=== PATIENT | male | born 1945 | race Caucasian/White ===

== ENCOUNTER 2020-04-29 16:11 | Emergency (ER) | payer OTHER, MEDICARE ==
[~2020-04-29] VITALS: Ht 177.8 cm; Wt 97.1 kg
[~2020-04-29 16:11] MED LIST: ALBU90OI INH; ALLO100 PO; ALLO300 PO; AMLO10 PO; ATEN50 PO; ATOR10 PO; BUPR100 PO; CALCAVITD PO; CHLO50; CLON.5 PO; CLON1 PO; CLOP75 PO; CYAN1000 PO; DOCU100 PO; FISH1000 PO; FLUO20 PO; FLUT.05NI; GABA600 PO; GLIP5 PO; HYDACE7.5 PO; INSUASPI SC; IRON325 MG PO; LAMO25 PO; LAMO50 PO; LISI20 PO; LISI5 PO; MECL25 PO; METCAR750 PO; NITR.4SL SL; OMEP20ER PO; OXYC5; PANT40 PO; PROBIOTIC1 EAC1 PO; Prednisone10 MG PO; QUET25 PO; SERT100 PO
[2020-04-29 17:03] LABS: Source, Urine Clean Catch
[2020-04-29 17:15] LABS: Bilirubin, Urine Neg (Neg); Blood, Urine Neg (Neg); Glucose Qualitative, Urine Neg (Neg); Ketones, Urine Neg (Neg); Leukocyte Esterase, Urine 1+ (Neg); Nitrite, Urine Neg (Neg); Protein, Urine 2+ (Neg); Specific Gravity, Urine 1.015 (1.003-1.022); Urobilinogen, Urine NORM (Normal)
[2020-04-29 17:23] LABS: Appearance, Urine Clear (Clear); Color, Urine Yellow (P-Yellow)
[2020-04-29 17:24] LABS: Bacteria Few /hpf; Red Blood Cells, Urine 0-2 /hpf (0-2); Squamous Epithelial Cells Few /hpf (Few)
[2020-04-29 17:56] LABS: BASOPHILS ABSOLUTE AUTO 0.05 K/mm3 (0.00-0.23); BASOPHILS PERCENT AUTO 0 % (0-2); EOSINOPHILS ABSOLUTE AUTO 0.14 K/mm3 (0.00-0.68); EOSINOPHILS PERCENT AUTO 1 % (0-6); Hematocrit 42.6 % (37.0-53.0); Hemoglobin 13.9 g/dL (13.5-17.5); IMMATURE GRAN ABSOLUTE AUTO 0.08 K/mm3 (0.00-0.10); IMMATURE GRAN PERCENT AUTO 1 % (0-1); LYMPHOCYTES ABSOLUTE AUTO 0.74 K/mm3 (0.84-5.20); LYMPHOCYTES PERCENT AUTO 7 % (21-46); MONOCYTES ABSOLUTE AUTO 0.38 K/mm3 (0.16-1.47); MONOCYTES PERCENT AUTO 3 % (4-13); Mean Corpuscular HGB 30.2 pg (26.0-34.0); Mean Corpuscular HGB Conc 32.6 g/dL (31.5-36.5); Mean Corpuscular Volume 93 fL (80-100); NEUTROPHILS ABSOLUTE AUTO 9.73 K/mm3 (1.96-9.15); NEUTROPHILS PERCENT AUTO 88 % (41-73); Platelet Count 160 K/mm3 (150-400); RDW Coefficient Variation 15.6 % (11.7-14.2); RDW Standard Deviation 53.3 fL (35.1-46.3); White Blood Cell Count 11.12 K/mm3 (4.00-11.30)
[2020-04-29 18:05] LABS: Albumin, Blood 3.6 g/dL (3.4-5.0); Bilirubin, Total 0.4 mg/dL (0.1-1.0); Bun/Creatinine Ratio 21.8 (12.0-20.0); Calcium, Blood 8.9 mg/dL (8.5-10.1); Creatinine, Blood 1.97 mg/dL (0.60-1.20); Globulin, Blood 3.5 g/dL (2.2-4.0); Potassium, Blood 4.3 mmol/L (3.5-5.5); Total Protein, Blood 7.1 g/dL (6.4-8.2)
[2020-04-29] MEDS ORDERED: BUPR100 PO (21:59)
[2020-04-29] MEDS ORDERED: NEURONTIN600 MG PO (22:00)
[2020-04-29] MEDS ORDERED: HYDHCL25 PO (22:01)
[2020-04-29] MEDS ORDERED: Terazosin HCl10 MG PO (22:01)
[2020-04-29] MEDS ORDERED: SERT100 PO (22:01)
[2020-04-29] MEDS ORDERED: NOVOLOG MI100 UNIT/2 SC (22:02)
[2020-04-29] MEDS ORDERED: FERSU300 PO (22:03)
[2020-04-29] MEDS ORDERED: FLUT.05NI (22:03)
== END 2020-04-29 22:17 | disposition home or self-care (01) ==
LOC: ER 16:11
PROVIDERS: Physician Assistant
DX: R10.9 Unspecified abdominal pain (principal); I12.9 Hypertensive chronic kidney disease with stage 1 through stage 4 chronic kidney disease, or unspecified chronic kidney disease; N18.3 Chronic kidney disease, stage 3 (moderate); Z88.2 Allergy status to sulfonamides; Z88.8 Allergy status to other drugs, medicaments and biological substances; Z88.5 Allergy status to narcotic agent; Z79.899 Other long term (current) drug therapy; Z79.4 Long term (current) use of insulin; Z79.52 Long term (current) use of systemic steroids
CPT/HCPCS: 36415; 74176; 80053; 81001; 83690; 85025; 87086; 99284-25

== ENCOUNTER 2020-09-12 14:12 | Emergency (ER) | payer OTHER, MEDICARE ==
[~2020-09-12] VITALS: Ht 180.3 cm; Wt 98.4 kg
[~2020-09-12 14:12] MED LIST changes: +FERSU300 PO; +HYDHCL25 PO; +NEURONTIN600 MG PO; +NOVOLOG MI100 UNIT/2 SC; +Terazosin HCl10 MG PO
[2020-09-12 15:10] LABS: BASOPHILS ABSOLUTE AUTO 0.03 K/mm3 (0.00-0.23); BASOPHILS PERCENT AUTO 0 % (0-2); EOSINOPHILS ABSOLUTE AUTO 0.09 K/mm3 (0.00-0.68); EOSINOPHILS PERCENT AUTO 1 % (0-6); Hematocrit 38.6 % (37.0-53.0); Hemoglobin 12.4 g/dL (13.5-17.5); IMMATURE GRAN ABSOLUTE AUTO 0.03 K/mm3 (0.00-0.10); IMMATURE GRAN PERCENT AUTO 0 % (0-1); LYMPHOCYTES ABSOLUTE AUTO 0.57 K/mm3 (0.84-5.20); LYMPHOCYTES PERCENT AUTO 6 % (21-46); MONOCYTES ABSOLUTE AUTO 0.51 K/mm3 (0.16-1.47); MONOCYTES PERCENT AUTO 5 % (4-13); Mean Corpuscular HGB 30.1 pg (26.0-34.0); Mean Corpuscular HGB Conc 32.1 g/dL (31.5-36.5); Mean Corpuscular Volume 94 fL (80-100); Mean Platelet Volume 11.4 fL (9.1-12.4); NEUTROPHILS ABSOLUTE AUTO 8.63 K/mm3 (1.96-9.15); NEUTROPHILS PERCENT AUTO 88 % (41-73); Platelet Count 130 K/mm3 (150-400); RDW Coefficient Variation 14.8 % (11.7-14.2); RDW Standard Deviation 51.3 fL (35.1-46.3); Red Blood Cell Count 4.12 M/mm3 (4.30-5.90); White Blood Cell Count 9.86 K/mm3 (4.00-11.30)
[2020-09-12 15:25] LABS: Albumin, Blood 3.2 g/dL (3.4-5.0); Albumin/Globulin Ratio 0.9 (0.8-1.8); Bilirubin, Total 0.6 mg/dL (0.1-1.0); Bun/Creatinine Ratio 14.8 (12.0-20.0); Calcium, Blood 9.3 mg/dL (8.5-10.1); Creatinine, Blood 2.1 mg/dL (0.60-1.20); Globulin, Blood 3.4 g/dL (2.2-4.0); Potassium, Blood 4.2 mmol/L (3.5-5.5); Total Protein, Blood 6.6 g/dL (6.4-8.2)
[2020-09-12 16:47] LABS: Source, Urine Clean Catch
[2020-09-12 16:55] LABS: Appearance, Urine Clear (Clear); Bilirubin, Urine Neg (Neg); Blood, Urine 1+ (Neg); Color, Urine Yellow (P-Yellow); Glucose Qualitative, Urine Neg (Neg); Ketones, Urine Neg (Neg); Leukocyte Esterase, Urine 2+ (Neg); Nitrite, Urine Neg (Neg); Protein, Urine 2+ (Neg); Specific Gravity, Urine 1.015 (1.003-1.022); Urobilinogen, Urine NORM (Normal)
[2020-09-12 17:05] LABS: Bacteria Rare /hpf; Squamous Epithelial Cells Rare /hpf (Few)
[2020-09-12] MEDS ORDERED: CEPH500 PO (17:52)
== END 2020-09-12 18:16 | disposition home or self-care (01) ==
LOC: ER 14:12
PROVIDERS: Physician Assistant
DX: N39.0 Urinary tract infection, site not specified (principal); G89.29 Other chronic pain; M54.5 Low back pain; S50.312A Abrasion of left elbow, initial encounter; C61 Malignant neoplasm of prostate; I12.9 Hypertensive chronic kidney disease with stage 1 through stage 4 chronic kidney disease, or unspecified chronic kidney disease; N18.30 Chronic kidney disease, stage 3 unspecified; Z91.81 History of falling; Z88.2 Allergy status to sulfonamides; Z88.5 Allergy status to narcotic agent; Z88.8 Allergy status to other drugs, medicaments and biological substances; Z79.4 Long term (current) use of insulin; Z79.52 Long term (current) use of systemic steroids; Z79.899 Other long term (current) drug therapy; W19.XXXA Unspecified fall, initial encounter
CPT/HCPCS: 36415; 74176; 80053; 81001; 85025; 87086; 99285-25; A9270-GY

== ENCOUNTER 2021-01-28 18:32 | Emergency (ER) | payer OTHER, MEDICARE ==
[~2021-01-28] VITALS: Ht 175.3 cm; Wt 96.6 kg
[~2021-01-28 18:32] MED LIST changes: +CEPH500 PO
[2021-01-28 19:30] LABS: BASOPHILS ABSOLUTE AUTO 0.04 K/mm3 (0.00-0.23); BASOPHILS PERCENT AUTO 0 % (0-2); EOSINOPHILS ABSOLUTE AUTO 0.19 K/mm3 (0.00-0.68); EOSINOPHILS PERCENT AUTO 2 % (0-6); Hemoglobin 13.2 g/dL (13.5-17.5); IMMATURE GRAN ABSOLUTE AUTO 0.04 K/mm3 (0.00-0.10); IMMATURE GRAN PERCENT AUTO 0 % (0-1); LYMPHOCYTES ABSOLUTE AUTO 0.88 K/mm3 (0.84-5.20); LYMPHOCYTES PERCENT AUTO 10 % (21-46); MONOCYTES PERCENT AUTO 8 % (4-13); Mean Corpuscular HGB 30.6 pg (26.0-34.0); Mean Corpuscular HGB Conc 31.4 g/dL (31.5-36.5); Mean Corpuscular Volume 97 fL (80-100); Mean Platelet Volume 11.4 fL (9.1-12.4); NEUTROPHILS ABSOLUTE AUTO 7.37 K/mm3 (1.96-9.15); NEUTROPHILS PERCENT AUTO 80 % (41-73); Platelet Count 110 K/mm3 (150-400); RDW Coefficient Variation 14.7 % (11.7-14.2); RDW Standard Deviation 53.4 fL (35.1-46.3); Red Blood Cell Count 4.31 M/mm3 (4.30-5.90); White Blood Cell Count 9.22 K/mm3 (4.00-11.30)
[2021-01-28 19:49] LABS: Alanine Aminotransfer (ALT/SGP 25 U/L (12-78); Albumin, Blood 3.3 g/dL (3.4-5.0); Albumin/Globulin Ratio 0.9 (0.8-1.8); Alk Phos 82 U/L (50-136); Anion Gap 6 mmol/L (6-16); Aspartate Aminotrans (AST/SGOT 23 U/L (12-37); Bilirubin, Total 0.4 mg/dL (0.1-1.0); Blood Urea Nitrogen 32 mg/dL (8-24); Bun/Creatinine Ratio 16.3 (12.0-20.0); CO2, Blood 23 mmol/L (21-32); Calcium, Blood 8.9 mg/dL (8.5-10.1); Chloride, Blood 106 mmol/L (98-108); Creatinine, Blood 1.96 mg/dL (0.60-1.20); Globulin, Blood 3.6 g/dL (2.2-4.0); Glomerular Filtration Rate 36 (60-); Glucose, Blood 89 mg/dL (70-99); Potassium, Blood 4.2 mmol/L (3.5-5.5); Sodium, Blood 135 mmol/L (136-145); Total Protein, Blood 6.9 g/dL (6.4-8.2); Troponin I <0.015 ng/mL (0.000-0.040)
== END 2021-01-29 00:33 | disposition home or self-care (01) ==
LOC: ER 18:32
PROVIDERS: Physician Assistant
DX: R07.9 Chest pain, unspecified (principal); I12.9 Hypertensive chronic kidney disease with stage 1 through stage 4 chronic kidney disease, or unspecified chronic kidney disease; N18.30 Chronic kidney disease, stage 3 unspecified; F17.210 Nicotine dependence, cigarettes, uncomplicated; Z79.4 Long term (current) use of insulin; Z79.899 Other long term (current) drug therapy; Z79.52 Long term (current) use of systemic steroids; Z98.890 Other specified postprocedural states; Z91.81 History of falling; Z88.2 Allergy status to sulfonamides; Z88.5 Allergy status to narcotic agent
CPT/HCPCS: 36415; 70450; 71045; 80053; 84484; 85025; 93005; 93010; 99284-25

== ENCOUNTER 2021-01-30 19:07 | Inpatient (IN) | payer OTHER, MEDICARE ==
[~2021-01-30] VITALS: Ht 177.8 cm; Wt 97.7 kg
[2021-01-30 23:39] LABS: BASOPHILS ABSOLUTE AUTO 0.03 K/mm3 (0.00-0.23); BASOPHILS PERCENT AUTO 0 % (0-2); EOSINOPHILS ABSOLUTE AUTO 0.17 K/mm3 (0.00-0.68); EOSINOPHILS PERCENT AUTO 2 % (0-6); Hematocrit 35.9 % (37.0-53.0); Hemoglobin 11.9 g/dL (13.5-17.5); IMMATURE GRAN ABSOLUTE AUTO 0.02 K/mm3 (0.00-0.10); IMMATURE GRAN PERCENT AUTO 0 % (0-1); LYMPHOCYTES ABSOLUTE AUTO 0.95 K/mm3 (0.84-5.20); LYMPHOCYTES PERCENT AUTO 11 % (21-46); MONOCYTES ABSOLUTE AUTO 0.91 K/mm3 (0.16-1.47); MONOCYTES PERCENT AUTO 10 % (4-13); Mean Corpuscular HGB 30.3 pg (26.0-34.0); Mean Corpuscular HGB Conc 33.1 g/dL (31.5-36.5); Mean Corpuscular Volume 91 fL (80-100); NEUTROPHILS ABSOLUTE AUTO 6.82 K/mm3 (1.96-9.15); NEUTROPHILS PERCENT AUTO 77 % (41-73); Platelet Count 109 K/mm3 (150-400); RDW Coefficient Variation 14.4 % (11.7-14.2); RDW Standard Deviation 48.7 fL (35.1-46.3); Red Blood Cell Count 3.93 M/mm3 (4.30-5.90)
[2021-01-30 23:57] LABS: Albumin, Blood 2.8 g/dL (3.4-5.0); Albumin/Globulin Ratio 0.8 (0.8-1.8); Bilirubin, Total 0.5 mg/dL (0.1-1.0); Bun/Creatinine Ratio 16.4 (12.0-20.0); Calcium, Blood 8.7 mg/dL (8.5-10.1); Creatinine, Blood 1.95 mg/dL (0.60-1.20); Globulin, Blood 3.3 g/dL (2.2-4.0); Potassium, Blood 3.6 mmol/L (3.5-5.5); Total Protein, Blood 6.1 g/dL (6.4-8.2)
[2021-01-31 00:37] LABS: Source, Urine Clean Catch
[2021-01-31 00:40] LABS: Appearance, Urine Clear (Clear); Bilirubin, Urine Neg (Neg); Blood, Urine 2+ (Neg); Color, Urine Yellow (P-Yellow); Glucose Qualitative, Urine Neg (Neg); Ketones, Urine Neg (Neg); Leukocyte Esterase, Urine Neg (Neg); Nitrite, Urine Neg (Neg); Protein, Urine 3+ (Neg); Urobilinogen, Urine NORM (Normal)
[2021-01-31 00:46] LABS: Bacteria Few /hpf; Hyaline Casts 0-2 /lpf (0-2); Red Blood Cells, Urine 0-2 /hpf (0-2); Squamous Epithelial Cells Few /hpf (Few); White Blood Cells, Urine 0-2 /hpf (0-5)
[2021-01-31 00:50] LABS: U Amphetamine Screen Not Detected; U Barbituate Screen Not Detected; U Benzodiazapine Screen Not Detected; U Buprenorphine Screen Not Detected; U Cannabinoids Screen Not Detected; U Cocaine Screen Not Detected; U Methadone Screen Not Detected; U Methamphetamine Screen Not Detected; U Opiates Screen Not Detected; U Oxycodone Screen Not Detected; U Phencyclidine Screen Not Detected; U Propoxyphene Screen Not Detected
[2021-01-31 04:56] LABS: BASOPHILS ABSOLUTE AUTO 0.04 K/mm3 (0.00-0.23); BASOPHILS PERCENT AUTO 0 % (0-2); EOSINOPHILS ABSOLUTE AUTO 0.19 K/mm3 (0.00-0.68); EOSINOPHILS PERCENT AUTO 2 % (0-6); Hematocrit 38.8 % (37.0-53.0); Hemoglobin 12.8 g/dL (13.5-17.5); IMMATURE GRAN ABSOLUTE AUTO 0.05 K/mm3 (0.00-0.10); IMMATURE GRAN PERCENT AUTO 1 % (0-1); LYMPHOCYTES ABSOLUTE AUTO 0.92 K/mm3 (0.84-5.20); LYMPHOCYTES PERCENT AUTO 9 % (21-46); MONOCYTES ABSOLUTE AUTO 0.86 K/mm3 (0.16-1.47); MONOCYTES PERCENT AUTO 8 % (4-13); Mean Corpuscular HGB 29.9 pg (26.0-34.0); Mean Corpuscular Volume 91 fL (80-100); Mean Platelet Volume 11.7 fL (9.1-12.4); NEUTROPHILS PERCENT AUTO 80 % (41-73); Platelet Count 120 K/mm3 (150-400); RDW Coefficient Variation 14.4 % (11.7-14.2); RDW Standard Deviation 48.2 fL (35.1-46.3); Red Blood Cell Count 4.28 M/mm3 (4.30-5.90); White Blood Cell Count 10.36 K/mm3 (4.00-11.30)
--- NOTE | 2021-01-31 05:15 | NUR ---
SHIFT SUMMARY: PT IS ALERT AND ORIENTED WITH INTERMITTENT CONFUSION. PT IS CALM AND COOPERATIVE WITH CARE. PT NOT USING HIS CALL LIGHT, SET OFF HIS BED ALARM ON MULTIPLE OCCASIONS. PT HAD INCONTINENT VOIDS ON SEVERAL OCCASIONS, CHANGED AND CLEANED NEEDED. PT DENIES PAIN, NAUSEA, VOMITING, AND SOB. NEW IV STARTED IN THE R. HAND. FLUIDS DC'D ORDERED AND DIURESING STARTED. BED IN LOW POSITION, CALL LIGHT WITHIN REACH. WILL REPORT TO DAY NURSE.
[2021-01-31 05:23] LABS: Albumin, Blood 3.1 g/dL (3.4-5.0); Albumin/Globulin Ratio 0.8 (0.8-1.8); Bilirubin, Total 0.7 mg/dL (0.1-1.0); Bun/Creatinine Ratio 16.8 (12.0-20.0); Calcium, Blood 9.1 mg/dL (8.5-10.1); Creatinine, Blood 1.9 mg/dL (0.60-1.20); Globulin, Blood 3.9 g/dL (2.2-4.0); Potassium, Blood 3.5 mmol/L (3.5-5.5)
--- NOTE | 2021-01-31 11:40 | NUR ---
Echocardiogram performed.
--- NOTE | 2021-01-31 16:55 | NUR ---
SHIFT SUMMARY- PT A/OX3, ANSWER QUESTIONS APROPRIATELY BUT VERY FORGETFUL. PT DOES NOT CALL APROPRIATELY AND IS IMPULSIVE. PT MEDICATED X1 WITH TYLENOL FOR RIGHT NECK, HEAD AND RIGHT KNEE PAIN. LS CLEAR, ON RA. TELE ST AT 69. PT UNSTEADY AT TIMES. PT WITH FREQUENCY AND URGENCY AFTER DIURETICS. PT INCONT AT TIMES, ATTEMPTED CONDOM CATH BUT PT PULLED OFF. PT RIGHT HAND NOTED TO BE SLIGHTLY WEAKER, MRI HAS BEEN ORDERED BUT DUE TO STENTS AWAITING REPORT FOR [facility]. COLOSTOMY TO LEFT ABD. PT 1 ASSIST UP TO BATHROOM WITH FWW, PT/OT EVAL TODAY. NO OTHER ACUTE CHANGES THIS SHIFT.
--- NOTE | 2021-01-31 17:35 | NUR ---
PT SPOUSE AT BEDSIDE AND REPORTS PT HAS BEEN OUT OF PREDNISONE FOR ABOUT A WEEK, STATES SHE IS WAITING FOR AN APPT WITH HIS COMPLIANCE DIRECTOR TO GET THE ORDER RENEWED. SPOUSE BELIVES RIGHT HAND PAIN COULD BE RELATED TO THIS.
--- NOTE | 2021-01-31 20:34 | NUR ---
PT continued impulsive & at high risk for falls. Transferred to room 353 in [facility] for closer observation camera monitoring to prevent further falls & injury. Hand off regulatory report provided & reviewed with Julisa JERNIGAN who assumed care at 2002. Personal belongings including bilat hearing aides sent with PT.
--- NOTE | 2021-01-31 20:36 | NUR ---
TRANSFER RECIEVED REPORT FROM COLLEEN LAM PT TRANSFERRED FROM RM 358 TO RM 353.
[2021-02-01 06:15] LABS: BASOPHILS ABSOLUTE AUTO 0.04 K/mm3 (0.00-0.23); BASOPHILS PERCENT AUTO 1 % (0-2); EOSINOPHILS ABSOLUTE AUTO 0.15 K/mm3 (0.00-0.68); EOSINOPHILS PERCENT AUTO 2 % (0-6); Hematocrit 35.2 % (37.0-53.0); Hemoglobin 11.8 g/dL (13.5-17.5); IMMATURE GRAN ABSOLUTE AUTO 0.03 K/mm3 (0.00-0.10); IMMATURE GRAN PERCENT AUTO 0 % (0-1); LYMPHOCYTES ABSOLUTE AUTO 0.77 K/mm3 (0.84-5.20); LYMPHOCYTES PERCENT AUTO 9 % (21-46); MONOCYTES ABSOLUTE AUTO 0.68 K/mm3 (0.16-1.47); MONOCYTES PERCENT AUTO 8 % (4-13); Mean Corpuscular HGB 30.4 pg (26.0-34.0); Mean Corpuscular HGB Conc 33.5 g/dL (31.5-36.5); Mean Corpuscular Volume 91 fL (80-100); Mean Platelet Volume 11.7 fL (9.1-12.4); NEUTROPHILS ABSOLUTE AUTO 6.68 K/mm3 (1.96-9.15); NEUTROPHILS PERCENT AUTO 80 % (41-73); Platelet Count 127 K/mm3 (150-400); RDW Coefficient Variation 14.3 % (11.7-14.2); RDW Standard Deviation 47.2 fL (35.1-46.3); Red Blood Cell Count 3.88 M/mm3 (4.30-5.90); White Blood Cell Count 8.35 K/mm3 (4.00-11.30)
--- NOTE | 2021-02-01 06:24 | NUR ---
SHIFT SUMMARY AOX4, ANSWERS ALL ORIENTATION QUESTIONS CORRECTLY. STATES "I WAS SURE CONFUSED LAST NIGHT, I DIDNT EVEN KNOW WHERE I WAS." STILL FORGETFUL @TIMES. VSS. TELE NSR @61. REPORTS 05/04 RLE PAIN, STATES HE THINKS ITS FROM FALLING-PT DENIED THE NEED FOR TYLENOL. DENIES DYSPNEA. SPO2 >90% ON RA. HAS OCCASIONAL COUGH, LUNGS ARE DIM c COURSE BREATH SOUNDS IN BASES, E/U RESPIRATIONS. COLOSTOMY APPLIANCE C/D/I TO LLQ ABD. PT USED CONDOM CATH TONIGHT, TO ASSIST c FREQUENT URINATION. CALL LIGHT & BED ALARM IN PLACE FOR SAFETY.
[2021-02-01 07:12] LABS: Albumin, Blood 2.8 g/dL (3.4-5.0); Albumin/Globulin Ratio 0.8 (0.8-1.8); Bilirubin, Total 0.5 mg/dL (0.1-1.0); Bun/Creatinine Ratio 19.2 (12.0-20.0); Calcium, Blood 8.8 mg/dL (8.5-10.1); Creatinine, Blood 2.03 mg/dL (0.60-1.20); Globulin, Blood 3.7 g/dL (2.2-4.0); Potassium, Blood 3.4 mmol/L (3.5-5.5); Thyroid Stimulating Hormone 0.876 uIU/mL (0.360-4.800); Total Protein, Blood 6.5 g/dL (6.4-8.2)
--- NOTE | 2021-02-01 15:50 | NUR ---
PATIENTS' COGNITIVE STATE APPEARS TO FLUCTUATE; THIS MORNING HE WAS ORIENTED TO SELF, PLACE, TIME AND SITUATION HOWEVER THIS AFTERNOON HE WAS NOTED TO BE VERY CONFUSED AND DISORIENTED. I WAS INFORMED IN REPORT THIS MORNING THAT HE AMBULATES WITH ONE PERSON ASSIST AND FWW HOWEVER WHEN THE SPECIAL EVENTS DRIVER AND STUDENT-SPECIAL EVENTS DRIVER ATTEMPTED TO GET THE PATIENT UP FOR A SHOWER HE WAS TOO WEAK TO EVEN STAND; PATIENT WAS GIVEN A BED-BATH INSTEAD. PATIENT WAS NOTED TO HAVE A FEVER THIS AFTERNOON OF 100.8; TYLENOL ADMINISTERED AND UPON REASSESSMENT THE FEVER WAS DOWN TO 99.9. PATIENT NOW NOTED TO BE SWEATING AND IT APPEARS HIS FEVER HAS BROKE. IS AT HIS BEDSIDE VISITING AT THIS TIME. CALL LIGHT IS IN REACH.
[2021-02-02 05:36] LABS: Hematocrit 33.7 % (37.0-53.0); Hemoglobin 11.4 g/dL (13.5-17.5); Mean Corpuscular HGB 30.3 pg (26.0-34.0); Mean Corpuscular HGB Conc 33.8 g/dL (31.5-36.5); Mean Corpuscular Volume 90 fL (80-100); Mean Platelet Volume 11.7 fL (9.1-12.4); Platelet Count 153 K/mm3 (150-400); RDW Standard Deviation 46.2 fL (35.1-46.3); Red Blood Cell Count 3.76 M/mm3 (4.30-5.90); White Blood Cell Count 7.82 K/mm3 (4.00-11.30)
[2021-02-02 06:17] LABS: Albumin, Blood 2.7 g/dL (3.4-5.0); Albumin/Globulin Ratio 0.8 (0.8-1.8); Bilirubin, Total 0.7 mg/dL (0.1-1.0); Calcium, Blood 9.2 mg/dL (8.5-10.1); Creatinine, Blood 2.1 mg/dL (0.60-1.20); Globulin, Blood 3.5 g/dL (2.2-4.0); Potassium, Blood 3.4 mmol/L (3.5-5.5); Total Protein, Blood 6.2 g/dL (6.4-8.2)
--- NOTE | 2021-02-02 06:39 | NUR ---
SHIFT SUMMARY PATIENT ALERT AND ORIENTED X3. HAD NO COMPLAINTS OF PAIN. PATIENT PLACED ON 3 LITERS O2 VIA NASAL CANULA TO HELP MAINTAIN HIS O2 SATURATION >92%. IV PATENT AND FLUSHED. BED IN LOWEST POSITION WITH WHEELS LOCKED AND ALARM ON. CALL LIGHT WITHIN REACH. REPORT GIVEN TO ONCOMING RN.
[2021-02-02 17:10] LABS: ANA DIRECT Negative (Negative)
--- NOTE | 2021-02-02 19:31 | NUR ---
SHIFT SUMMARY: NO ACUTE EVENTS TO REPORT THIS SHIFT. PT A&O X1-4; OCC FORGETFUL; CALM AND COOPERATIVE WITHC ARE. MEDICATED FOR CULLEN PAIN & COUGH PER EMAR. COLOSTOMY LLQ; PATENT & DRAINING; SMALL OUTPUT THIS SHIFT. PT & OT FOLLOWING. REPORT GIVEN TO ONCOMING RN.
--- NOTE | 2021-02-03 04:12 | NUR ---
SHIFT SUMMARY: PATIENT IS A&OX3, FORGETFUL AT TIMES, DOES NOT USE CALL [place] FOR ASSIST OOB, BED ALARM IS ON FOR SAFETY. LUNGS ARE DIMINISHED WITH AND OCCASSIONAL NON-PRO COUGH. MAINTAINS SATS ON RA AT 94%
[2021-02-03 05:15] LABS: BASOPHILS ABSOLUTE AUTO 0.03 K/mm3 (0.00-0.23); BASOPHILS PERCENT AUTO 0 % (0-2); EOSINOPHILS ABSOLUTE AUTO 0.24 K/mm3 (0.00-0.68); EOSINOPHILS PERCENT AUTO 3 % (0-6); Hematocrit 35.4 % (37.0-53.0); Hemoglobin 11.9 g/dL (13.5-17.5); IMMATURE GRAN ABSOLUTE AUTO 0.03 K/mm3 (0.00-0.10); IMMATURE GRAN PERCENT AUTO 0 % (0-1); LYMPHOCYTES ABSOLUTE AUTO 0.74 K/mm3 (0.84-5.20); LYMPHOCYTES PERCENT AUTO 10 % (21-46); MONOCYTES ABSOLUTE AUTO 0.49 K/mm3 (0.16-1.47); MONOCYTES PERCENT AUTO 6 % (4-13); Mean Corpuscular HGB 30.4 pg (26.0-34.0); Mean Corpuscular HGB Conc 33.6 g/dL (31.5-36.5); Mean Corpuscular Volume 91 fL (80-100); Mean Platelet Volume 10.9 fL (9.1-12.4); NEUTROPHILS PERCENT AUTO 80 % (41-73); Platelet Count 178 K/mm3 (150-400); RDW Coefficient Variation 14.1 % (11.7-14.2); RDW Standard Deviation 46.5 fL (35.1-46.3); Red Blood Cell Count 3.91 M/mm3 (4.30-5.90); White Blood Cell Count 7.63 K/mm3 (4.00-11.30)
[2021-02-03 05:39] LABS: Albumin, Blood 2.8 g/dL (3.4-5.0); Albumin/Globulin Ratio 0.7 (0.8-1.8); Bilirubin, Total 0.6 mg/dL (0.1-1.0); Bun/Creatinine Ratio 23.6 (12.0-20.0); Calcium, Blood 9.4 mg/dL (8.5-10.1); Creatinine, Blood 1.99 mg/dL (0.60-1.20); Globulin, Blood 3.9 g/dL (2.2-4.0); Potassium, Blood 3.4 mmol/L (3.5-5.5); Total Protein, Blood 6.7 g/dL (6.4-8.2)
--- NOTE | 2021-02-03 19:38 | NUR ---
SHIFT SUMMARY: NO ACUTE CHANGES TO REPORT THIS SHIFT. PT A&O X3; OCC FORGETFUL; CALM AND COOPERATIVE WITH CARE. MEDICATED FOR CULLEN PAIN PER EMAR. O2 SATS STABLE ON ROOM AIR, COOLOSTOMY TO LLQ; PATENT & DRAINING. BLADDER SCAN Q SHIFT; FREQUENT VOIDS; POST-VOID RESIDUAL 0 THIS SHIFT. AWAITING CLEARANCE TO PERFORM MRI. REPORT GIVEN TO ONCOMING RN.
--- NOTE | 2021-02-04 03:54 | NUR ---
SHIFT SUMMARY: PATIENT IS A&OX2, UNSURE OF DATE. VSS, REPORTING NECK PAIN, TYLENOL WAS GIVEN WITH GOOD EFFECT. NO ACTIVITY OBSERVED ON COLOSTOMY SINCE 01/31/21. DR DENNY IS NOTIFIED AND ORDERS TO START BOWEL CARE PROTOCOL IS OBTAINED. UP TO THE BATHROOM WITH SBA X 1 AND FWW. MARI DOES NOT CALL FOR ASSISTANCE. BED ALARM IS ON FOR SAFETY.
[2021-02-04 05:47] LABS: Hematocrit 35.2 % (37.0-53.0); Hemoglobin 11.6 g/dL (13.5-17.5); Mean Corpuscular Volume 91 fL (80-100); Mean Platelet Volume 11.4 fL (9.1-12.4); Platelet Count 216 K/mm3 (150-400); RDW Coefficient Variation 13.8 % (11.7-14.2); RDW Standard Deviation 46.2 fL (35.1-46.3); Red Blood Cell Count 3.87 M/mm3 (4.30-5.90); White Blood Cell Count 8.62 K/mm3 (4.00-11.30)
[2021-02-04 06:14] LABS: Albumin, Blood 2.7 g/dL (3.4-5.0); Albumin/Globulin Ratio 0.7 (0.8-1.8); Bilirubin, Total 0.4 mg/dL (0.1-1.0); Bun/Creatinine Ratio 27.7 (12.0-20.0); Calcium, Blood 9.4 mg/dL (8.5-10.1); Creatinine, Blood 1.95 mg/dL (0.60-1.20); Potassium, Blood 4.1 mmol/L (3.5-5.5); Total Protein, Blood 6.7 g/dL (6.4-8.2)
--- NOTE | 2021-02-04 17:36 | NUR ---
SHIFT SUMMARY PATIENT DENIES PAIN, NAUSEA, AND SHORTNESS OF BREATH. PATIENT UP SBA W/FWW TO BR. NO OUTPUT FROM OSTOMY FOR 2 DAYS, BOWEL CARE GIVEN. CT COMPLETED TODAY. MRI ON HOLD UNTIL ILLIAC STENTS CAN BE VERIFIED. PATIENT'S WORKING ON GETTING PAPERWORK FROM [employer]. EATING AND DRINKING WELL.
--- NOTE | 2021-02-05 06:07 | NUR ---
SHIFT SUMMARY: PATIENT IS A&OX4 WITH FORGETFULNESS AT TIMES. DOES NOT RING FOR ASSIST OOB SOME TIMES. BED ALARM IS ON FOR SAFETY. COLOSTOMY IS PATENET FOR A BROWN PASTY STOOL. REPORTING PAIN IN R HIP, "AND THAT IS THE SIDE I SLEEP ON". TYLENOL IS GIVEN WITH GOOD EFFECT. AX1 WITH FWW AND SBA.
[2021-02-05 06:12] LABS: Bun/Creatinine Ratio 33.5 (12.0-20.0); Calcium, Blood 9.8 mg/dL (8.5-10.1); Creatinine, Blood 1.7 mg/dL (0.60-1.20); Potassium, Blood 3.8 mmol/L (3.5-5.5)
--- NOTE | 2021-02-05 18:19 | NUR ---
SHIFT SUMMARY PATIENT DENIES PAIN, NAUSEA, AND SHORTNESS OF BREATH. PATIENT UP SBA W/FWW TO BR. POSITIVE ORTHSTATIC VITALS IN AM. OSTOMY PRODUCED SEVERAL STOOLS TODAY. EATING AND DRINKING WELL. VISITED IN AFTERNOON. COOPERATIVE WITH CARE.
--- NOTE | 2021-02-06 04:41 | NUR ---
SUMMARY NO NEW ISSUES NOTED. PT BLADDER SCANNED AND PVR WAS 8 ML. PT HAS SLEPT T/O SHIFT AND HAD NO COMPLAINTS. PT CURRENTLY SLEEPING AND IN NO DISTRESS. CALL LIGHT IN REACH.
[2021-02-06 05:52] LABS: Albumin, Blood 2.8 g/dL (3.4-5.0); Anion Gap 8 mmol/L (6-16); Blood Urea Nitrogen 56 mg/dL (8-24); Bun/Creatinine Ratio 34.4 (12.0-20.0); CO2, Blood 28 mmol/L (21-32); Calcium, Blood 9.8 mg/dL (8.5-10.1); Chloride, Blood 107 mmol/L (98-108); Creatinine, Blood 1.63 mg/dL (0.60-1.20); Glomerular Filtration Rate 44 (60-); Glucose, Blood 91 mg/dL (70-99); Magnesium, Blood 2.8 mg/dL (1.6-2.4); Phosphorus, Blood 3.3 mg/dL (2.5-4.9); Sodium, Blood 143 mmol/L (136-145)
--- NOTE | 2021-02-06 19:09 | NUR ---
SHIFT SUMMARY PATIENT DENIES PAIN, NAUSEA, AND SHORTNESS OF BREATH DURING SHIFT. PATIENT REPORTED "SHARP TWINGE OF CHEST PAIN" DURING DINNERTIME. PATIENT REPORTS IT COMPLETELY RESOLVED IN LESS THAN ONE MINUTE. PATIENT'S REPORTS HE HAS A PRINZMETAL ANGINA DIAGNOSIS. VS STABLE UPON RECHECK. UP SBA TO BR W/FWW. EATING AND DRINKING WELL.
--- NOTE | 2021-02-06 23:01 | NUR ---
REPORT/TRANSFER: REPORT WAS RECIEVED FROM YOKASTA SALINAS RN, PATIENT AND BELONGINGS ARE TRANSFERED. PATIENT IS UNDERSTANDING AND AGREES WITH TRANSFER. HS SNACK IS GIVEN. PATIENT IS ORIENTED TO ROOM 340.
--- NOTE | 2021-02-06 23:11 | NUR ---
2300 TRANSFERRED PT PT CARE TO LILLIAN JERNIGAN.
--- NOTE | 2021-02-07 07:56 | NUR ---
SHIFT SUMMARY: PATIENT IS A&O X3, BP WAS ELEVATED ON TRANSFER, PATIENT WAS WOKEN ABRUPTLY AND IS ASYMPTOMATIC. UP TO THE BATHROOM WITH ASSIST X1 ANS FWW. BED ALARM IS ON FOR SAFETY.
[2021-02-07 08:29] LABS: Albumin, Blood 3.2 g/dL (3.4-5.0); Anion Gap 5 mmol/L (6-16); Blood Urea Nitrogen 47 mg/dL (8-24); Bun/Creatinine Ratio 30.3 (12.0-20.0); CO2, Blood 30 mmol/L (21-32); Calcium, Blood 9.6 mg/dL (8.5-10.1); Chloride, Blood 108 mmol/L (98-108); Creatinine, Blood 1.55 mg/dL (0.60-1.20); Glomerular Filtration Rate 47 (60-); Glucose, Blood 132 mg/dL (70-99); Potassium, Blood 4.2 mmol/L (3.5-5.5); Sodium, Blood 143 mmol/L (136-145)
--- NOTE | 2021-02-07 18:23 | NUR ---
PATIENT IS ALERT AND ORIENTED AND COOPERATIVE WITH CARE. THE PATIENT DOES FORGET TO CALL BEFORE HE GETS UP TO AMBULATE TO THE BATHROOM. BED ALARM AND CHAIR ALARM ARE IN PLACE. THE PATIENT'S WAS AT THE BEDSIDE DURING VISTOR HOURS TODAY. NO NEW COMPLAINTS. WILL CONTINUE TO MONITOR
--- NOTE | 2021-02-08 04:28 | NUR ---
SCHEDULER MAINTENANCE SUMMARY PT A&OX4, FORGETFUL AT TIMES. ABLE TO MAKE NEEDS KNOWN, PLEASANT AND COOPERATIVE TO CARE. NO C/O PAIN OR ANY DISCOMFORT THIS SHIFT. NO ACUTE CHANGES NOTED. NO C/O CP, SOB, N&V. PT CALM AND RESTED IN BED T/O SHIFT. BED AT LOWEST POSITION W/ ALARM ON. CALL LIGHT WITHIN REACH.
[2021-02-08 05:37] LABS: Albumin, Blood 2.8 g/dL (3.4-5.0); Anion Gap 4 mmol/L (6-16); Blood Urea Nitrogen 45 mg/dL (8-24); Bun/Creatinine Ratio 35.7 (12.0-20.0); CO2, Blood 32 mmol/L (21-32); Calcium, Blood 9.3 mg/dL (8.5-10.1); Chloride, Blood 107 mmol/L (98-108); Creatinine, Blood 1.26 mg/dL (0.60-1.20); Glomerular Filtration Rate 60 (60-); Glucose, Blood 133 mg/dL (70-99); Phosphorus, Blood 2.8 mg/dL (2.5-4.9); Potassium, Blood 4.1 mmol/L (3.5-5.5); Sodium, Blood 143 mmol/L (136-145)
--- NOTE | 2021-02-08 18:22 | NUR ---
SHIFT SUMMARY PT HAS BEEN AWAKE, SITTING ON SIDE OF BED OR IN THE CHAIR MOST OF THE SHIFT. PT HAS HAD NO COMPLAINTS OF PAIN. MEDICATED FOR ANXIETY X1 THIS AFTERNOON. PT HAS HAD A GOOD APPETITE. WANTING TO GO HOME. PT AMBULATED IN [place] WITH WITHOUT DIFFICULTY. NO ACUTE CHANGES. CALL LIGHT IN REACH. WILL CONTINUE TO MONITOR AND REPORT TO ONCOMING RN. BED ALARM ON FOR SAFETY.
--- NOTE | 2021-02-09 05:11 | NUR ---
SHIFT SUMMARY HAS BEEN RESTING QUIETLY WITH INTERMITTENT EPISODES OF BATHROOM TRIPS TO VOID. PUTTING OUT QS. WAS INCONT X 1 HE COULDNT MAKE IT TO THE BATHROOM IN TIME. CALL LIGHT IN REACH. NO C/O VOICED AT THIS TIME.
[2021-02-09 08:15] LABS: Anion Gap 5 mmol/L (6-16); Blood Urea Nitrogen 44 mg/dL (8-24); Bun/Creatinine Ratio 28.6 (12.0-20.0); CO2, Blood 31 mmol/L (21-32); Calcium, Blood 9.7 mg/dL (8.5-10.1); Chloride, Blood 107 mmol/L (98-108); Creatinine, Blood 1.54 mg/dL (0.60-1.20); Glomerular Filtration Rate 47 (60-); Glucose, Blood 115 mg/dL (70-99); Phosphorus, Blood 3.2 mg/dL (2.5-4.9); Potassium, Blood 3.9 mmol/L (3.5-5.5); Sodium, Blood 143 mmol/L (136-145)
[2021-02-09] MEDS ORDERED: CALCIUM 600 MG1 EA11 PO (14:19)
[2021-02-09] MEDS ORDERED: DOCU100 PO (14:20)
[2021-02-09] MEDS ORDERED: DECADRON PO (14:20)
--- NOTE | 2021-02-09 17:27 | NUR ---
DISCHARGE PT DISCHARGED TO HOME. THIS RN EXPLAINED DISCHARGE INSTRUCTIONS AND MEDICATIONS TO PT AND PT'S . THEY REPORT THEY UNDERSTAND. IV REMOVED WITHOUT DIFFICULTY. MEDICATIONS FAXED TO [facility] PER REQUEST. PT TRANSFERRED TO PRIVATE VEHICLE VIA WHEELCHAIR BY NARINDER. BELONGINGS WITH PT.
== END 2021-02-09 15:45 | disposition home or self-care (01) | DRG 291 ==
LOC: ER 19:07 → MEDS 19:08
PROVIDERS: Internal Medicine; ADMIT Internal Medicine
DX: I13.0 Hypertensive heart and chronic kidney disease with heart failure and stage 1 through stage 4 chronic kidney disease, or unspecified chronic kidney disease (principal); I50.33 Acute on chronic diastolic (congestive) heart failure; G92 Toxic encephalopathy; J44.0 Chronic obstructive pulmonary disease with (acute) lower respiratory infection; I95.1 Orthostatic hypotension; J20.9 Acute bronchitis, unspecified; R29.6 Repeated falls; N18.30 Chronic kidney disease, stage 3 unspecified; F32.9 Major depressive disorder, single episode, unspecified; E78.5 Hyperlipidemia, unspecified; M06.9 Rheumatoid arthritis, unspecified; E11.42 Type 2 diabetes mellitus with diabetic polyneuropathy; M35.3 Polymyalgia rheumatica; G43.909 Migraine, unspecified, not intractable, without status migrainosus; E11.22 Type 2 diabetes mellitus with diabetic chronic kidney disease; E87.6 Hypokalemia; Z85.46 Personal history of malignant neoplasm of prostate; Z79.899 Other long term (current) drug therapy; Z79.4 Long term (current) use of insulin; Z88.5 Allergy status to narcotic agent; Z88.2 Allergy status to sulfonamides; Z88.8 Allergy status to other drugs, medicaments and biological substances; F17.210 Nicotine dependence, cigarettes, uncomplicated; F43.10 Post-traumatic stress disorder, unspecified; E11.51 Type 2 diabetes mellitus with diabetic peripheral angiopathy without gangrene; Z86.73 Personal history of transient ischemic attack (TIA), and cerebral infarction without residual deficits; G89.29 Other chronic pain; M54.9 Dorsalgia, unspecified; Z98.890 Other specified postprocedural states; S09.90XA Unspecified injury of head, initial encounter; W18.30XA Fall on same level, unspecified, initial encounter
CPT/HCPCS: 36415; 36416; 70450; 80048; 80053; 80069; 81001; 82533; 82607; 82746; 82947; 83036; 83605; 83735; 83880; 84145; 84443; 85025; 85027; 85651; 86038; 86592; 87040; 93306; 94640; 94667; 94760; 96365; 96368; 96372; 96375; 96376; 97110; 97112; 97116; 97129; 97162; 97166; 97530; 97535; 99285-25; A9270; G0378; J0360; J0456; J0696; J1650; J1720; J1815; J1940; J7030; J7050; J7512

== ENCOUNTER 2021-04-14 14:12 | Emergency (ER) | payer OTHER, MEDICARE ==
[~2021-04-14] VITALS: Ht 175.3 cm; Wt 104.3 kg
[~2021-04-14 14:12] MED LIST changes: +CALCIUM 600 MG1 EA11 PO; +DECADRON PO
[2021-04-14] MEDS ORDERED: ALLO100 PO (14:43)
[2021-04-14] MEDS ORDERED: ALBU90OI INH (14:43)
[2021-04-14] MEDS ORDERED: AMLO5 PO (14:43)
[2021-04-14] MEDS ORDERED: EZET10 PO (14:44)
[2021-04-14] MEDS ORDERED: DEXA4 PO (14:44)
[2021-04-14] MEDS ORDERED: BUPR100ER PO (14:44)
[2021-04-14] MEDS ORDERED: ALLEGRA ALLERG180 MG PO (14:45)
[2021-04-14] MEDS ORDERED: NOVOLOG100 UNIT/2 SC (14:45)
[2021-04-14] MEDS ORDERED: Primidone50 MG PO (14:46)
[2021-04-14] MEDS ORDERED: TAMS.4ER PO (14:46)
[2021-04-14] MEDS ORDERED: SERT100 PO (14:46)
[2021-04-14 14:56] LABS: BASOPHILS ABSOLUTE AUTO 0.02 K/mm3 (0.00-0.23); BASOPHILS PERCENT AUTO 0 % (0-2); EOSINOPHILS ABSOLUTE AUTO 0.02 K/mm3 (0.00-0.68); EOSINOPHILS PERCENT AUTO 0 % (0-6); Hematocrit 40.6 % (37.0-53.0); Hemoglobin 13.5 g/dL (13.5-17.5); IMMATURE GRAN ABSOLUTE AUTO 0.19 K/mm3 (0.00-0.10); IMMATURE GRAN PERCENT AUTO 1 % (0-1); LYMPHOCYTES ABSOLUTE AUTO 0.34 K/mm3 (0.84-5.20); LYMPHOCYTES PERCENT AUTO 2 % (21-46); MONOCYTES ABSOLUTE AUTO 0.51 K/mm3 (0.16-1.47); MONOCYTES PERCENT AUTO 4 % (4-13); Mean Corpuscular HGB 30.8 pg (26.0-34.0); Mean Corpuscular HGB Conc 33.3 g/dL (31.5-36.5); Mean Corpuscular Volume 93 fL (80-100); Mean Platelet Volume 11.2 fL (9.1-12.4); NEUTROPHILS ABSOLUTE AUTO 13.29 K/mm3 (1.96-9.15); NEUTROPHILS PERCENT AUTO 93 % (41-73); Platelet Count 109 K/mm3 (150-400); RDW Coefficient Variation 15.9 % (11.7-14.2); RDW Standard Deviation 54.4 fL (35.1-46.3); Red Blood Cell Count 4.38 M/mm3 (4.30-5.90); White Blood Cell Count 14.37 K/mm3 (4.00-11.30)
[2021-04-14 15:10] LABS: Albumin, Blood 2.7 g/dL (3.4-5.0); Albumin/Globulin Ratio 0.7 (0.8-1.8); Bilirubin, Total 0.4 mg/dL (0.1-1.0); Bun/Creatinine Ratio 26.5 (12.0-20.0); Calcium, Blood 8.6 mg/dL (8.5-10.1); Creatinine, Blood 1.47 mg/dL (0.60-1.20); Globulin, Blood 3.8 g/dL (2.2-4.0); Total Protein, Blood 6.5 g/dL (6.4-8.2); Troponin I 0.04 ng/mL (0.000-0.040)
[2021-04-14 15:48] LABS: BASOPHILS PERCENT MAN 0 % (0-2); EOSINOPHILS PERCENT MAN 0 % (0-6); LYMPHOCYTES ABSOLUTE MAN 0.28 K/mm3 (0.84-5.20); LYMPHOCYTES PERCENT MAN 2 % (21-46); MONOCYTES ABSOLUTE MAN 0.28 K/mm3 (0.16-1.47); MONOCYTES PERCENT MAN 2 % (4-13); NEUTROPHILS ABSOLUTE MAN 13.79 K/mm3 (1.96-9.15); SEG NEUTROPHILS PERCENT MAN 96 % (41-73); TOTAL CELLS COUNTED 100
[2021-04-14 18:09] LABS: SARS-Cov-2 (COVID-19) PCR, MMC NEGATIVE (NEGATIVE)
[2021-04-14] MEDS ORDERED: ACETAMINOPHEN500 MG PO (18:42)
[2021-04-14] MEDS ORDERED: Amoxicillin500 MG PO (18:42)
== END 2021-04-14 18:58 | disposition home or self-care (01) ==
LOC: ER 14:12
PROVIDERS: Emergency Medicine
DX: R10.11 Right upper quadrant pain (principal); I13.0 Hypertensive heart and chronic kidney disease with heart failure and stage 1 through stage 4 chronic kidney disease, or unspecified chronic kidney disease; E11.22 Type 2 diabetes mellitus with diabetic chronic kidney disease; N18.30 Chronic kidney disease, stage 3 unspecified; I50.9 Heart failure, unspecified; Z20.822 Contact with and (suspected) exposure to COVID-19; E11.42 Type 2 diabetes mellitus with diabetic polyneuropathy; F17.210 Nicotine dependence, cigarettes, uncomplicated; Z88.2 Allergy status to sulfonamides; Z88.5 Allergy status to narcotic agent; Z88.8 Allergy status to other drugs, medicaments and biological substances; Z79.4 Long term (current) use of insulin; Z79.899 Other long term (current) drug therapy; E11.51 Type 2 diabetes mellitus with diabetic peripheral angiopathy without gangrene
CPT/HCPCS: 36415; 71045; 76705; 80053; 83690; 84145; 84484; 85025; 93005; 93010; 94640; 96374; 96375; 99284-25; J0696; J1170; J2405; U0004

== ENCOUNTER 2021-05-22 13:28 | Inpatient (IN) | payer OTHER ==
[~2021-05-22] VITALS: Ht 177.8 cm; Wt 102.1 kg
[~2021-05-22 13:28] MED LIST changes: +ACETAMINOPHEN500 MG PO; +ALLEGRA ALLERG180 MG PO; +AMLO5 PO; +Amoxicillin500 MG PO; +DEXA4 PO; +EZET10 PO; +NOVOLOG100 UNIT/2 SC; +Primidone50 MG PO; +TAMS.4ER PO
[2021-05-22 16:16] LABS: BASOPHILS ABSOLUTE AUTO 0.07 K/mm3 (0.00-0.23); BASOPHILS PERCENT AUTO 1 % (0-2); EOSINOPHILS ABSOLUTE AUTO 0.27 K/mm3 (0.00-0.68); EOSINOPHILS PERCENT AUTO 3 % (0-6); Hematocrit 38.9 % (37.0-53.0); IMMATURE GRAN ABSOLUTE AUTO 0.08 K/mm3 (0.00-0.10); IMMATURE GRAN PERCENT AUTO 1 % (0-1); LYMPHOCYTES ABSOLUTE AUTO 1.25 K/mm3 (0.84-5.20); LYMPHOCYTES PERCENT AUTO 12 % (21-46); MONOCYTES PERCENT AUTO 10 % (4-13); Mean Corpuscular HGB 30.3 pg (26.0-34.0); Mean Corpuscular HGB Conc 33.4 g/dL (31.5-36.5); Mean Corpuscular Volume 91 fL (80-100); NEUTROPHILS ABSOLUTE AUTO 7.46 K/mm3 (1.96-9.15); NEUTROPHILS PERCENT AUTO 74 % (41-73); Platelet Count 185 K/mm3 (150-400); RDW Coefficient Variation 15.4 % (11.7-14.2); RDW Standard Deviation 51.4 fL (35.1-46.3); Red Blood Cell Count 4.29 M/mm3 (4.30-5.90); White Blood Cell Count 10.13 K/mm3 (4.00-11.30)
[2021-05-22 16:38] LABS: Albumin, Blood 2.6 g/dL (3.4-5.0); Albumin/Globulin Ratio 0.8 (0.8-1.8); Bilirubin, Total 0.3 mg/dL (0.1-1.0); Bun/Creatinine Ratio 12.4 (12.0-20.0); Calcium, Blood 8.8 mg/dL (8.5-10.1); Creatinine, Blood 3.47 mg/dL (0.60-1.20); Globulin, Blood 3.3 g/dL (2.2-4.0); Potassium, Blood 2.7 mmol/L (3.5-5.5); Total Protein, Blood 5.9 g/dL (6.4-8.2)
[2021-05-22] MEDS ORDERED: BUPR100ER PO (16:50)
[2021-05-23 05:25] LABS: BASOPHILS ABSOLUTE AUTO 0.05 K/mm3 (0.00-0.23); BASOPHILS PERCENT AUTO 1 % (0-2); EOSINOPHILS ABSOLUTE AUTO 0.28 K/mm3 (0.00-0.68); EOSINOPHILS PERCENT AUTO 3 % (0-6); Hematocrit 37.2 % (37.0-53.0); Hemoglobin 12.4 g/dL (13.5-17.5); IMMATURE GRAN ABSOLUTE AUTO 0.07 K/mm3 (0.00-0.10); IMMATURE GRAN PERCENT AUTO 1 % (0-1); LYMPHOCYTES ABSOLUTE AUTO 0.98 K/mm3 (0.84-5.20); LYMPHOCYTES PERCENT AUTO 11 % (21-46); MONOCYTES ABSOLUTE AUTO 0.92 K/mm3 (0.16-1.47); MONOCYTES PERCENT AUTO 10 % (4-13); Mean Corpuscular HGB 30.1 pg (26.0-34.0); Mean Corpuscular HGB Conc 33.3 g/dL (31.5-36.5); Mean Corpuscular Volume 90 fL (80-100); Mean Platelet Volume 10.8 fL (9.1-12.4); NEUTROPHILS ABSOLUTE AUTO 6.97 K/mm3 (1.96-9.15); NEUTROPHILS PERCENT AUTO 75 % (41-73); Platelet Count 166 K/mm3 (150-400); RDW Coefficient Variation 14.9 % (11.7-14.2); RDW Standard Deviation 49.5 fL (35.1-46.3); Red Blood Cell Count 4.12 M/mm3 (4.30-5.90); White Blood Cell Count 9.27 K/mm3 (4.00-11.30)
[2021-05-23 05:44] LABS: Albumin, Blood 2.3 g/dL (3.4-5.0); Albumin/Globulin Ratio 0.7 (0.8-1.8); Bilirubin, Total 0.5 mg/dL (0.1-1.0); Bun/Creatinine Ratio 11.9 (12.0-20.0); Calcium, Blood 7.9 mg/dL (8.5-10.1); Creatinine, Blood 3.02 mg/dL (0.60-1.20); Globulin, Blood 3.3 g/dL (2.2-4.0); Potassium, Blood 2.9 mmol/L (3.5-5.5); Total Protein, Blood 5.6 g/dL (6.4-8.2)
--- NOTE | 2021-05-23 05:59 | NUR ---
SHIFT SUMMARY A/OX4, 1 ASSIST WHEN AMBULATING. DENIES PAIN OR SOB. TELE RUNNING SR IN THE 60'S. COLOSTOMY TO LLQ WITH BROWN UNFORMED STOOL. NS INFUSING AT 75 ML/HR. NO ACUTE CHANGES AT THIS TIME. BED IN LOWEST POSITION WITH CALL LIGHT IN REACH. WILL CONTINUE TO MONITOR AND REPORT TO ONCOMING RN.
--- NOTE | 2021-05-23 06:37 | NUR ---
PROVIDER NOTIFY PIZZA CHEF PROVIDER NOTIFIED POTASSIUM OF 2.9 THIS AM. NEW ORDER FOR POTASSIUM 40MEQ IV.
[2021-05-23 15:41] LABS: Bun/Creatinine Ratio 11.4 (12.0-20.0); Calcium, Blood 8.3 mg/dL (8.5-10.1); Creatinine, Blood 2.9 mg/dL (0.60-1.20); Potassium, Blood 3.4 mmol/L (3.5-5.5)
--- NOTE | 2021-05-23 18:18 | NUR ---
SHIFT SUMMARY- PT IS ALERT PLESANT AND COOPERATIVE. HE IS EATING AND DRINKING WELL. HIS WAS AT BEDSIDE THIS AFTERNOON. HE HAD SOME INCREASING CONFUSION THIS EVENING, SPOKE WITH DR. KILLIAN. PT STATED THAT THIS WAS NOT NORMAL FOR HIM. HIS BED IS IN THE LOW POSITION, CALL LIGHT IS WITIN REACH, BED ALARM IS ON.
--- NOTE | 2021-05-24 05:27 | NUR ---
SHIFT SUMMARY PT HAS BEEN INTERMITTENTLY CONFUSED. FEBRILE AND HYPERTENSIVE BOTH AT START AND END OF SHIFT. MEDICATED PER EMAR. BREATHING QUITE LABORED DURING EACH TIME. HOWEVER PT'S LUNGS SOUNDING MORE WET THIS AM. RT SUGGESTED THAT PT MAY NEED TO BE DIURESED. NOTIFIED DR. TORRES. WITH ORDERS TO STOP THE FLUIDS. NO DIURETICS AT THIS TIME. FLUIDS STOPPED. PT MOSTLY INCONTINENT THIS EVENING. HAVING DIFFICULTY VOIDING IN THE URINAL. BLADDER SCAN DONE THIS AM ONLY READING 148 ML. PT PLACED ON 2 L VIA NC, O2 SATS IN THE MID 80'S ON RA. COLOSTOMY TO LLQ, GREEN UNFORMED STOOL. PT RESTING IN BED AT THIS TIME. WILL CONTINUE TO MONITOR.
[2021-05-24 06:18] LABS: Albumin, Blood 2.4 g/dL (3.4-5.0); Anion Gap 9 mmol/L (6-16); Blood Urea Nitrogen 33 mg/dL (8-24); Bun/Creatinine Ratio 12.4 (12.0-20.0); CO2, Blood 23 mmol/L (21-32); Calcium, Blood 8.3 mg/dL (8.5-10.1); Chloride, Blood 105 mmol/L (98-108); Creatinine, Blood 2.66 mg/dL (0.60-1.20); Glomerular Filtration Rate 25 (60-); Glucose, Blood 142 mg/dL (70-99); Phosphorus, Blood 2.6 mg/dL (2.5-4.9); Potassium, Blood 3.1 mmol/L (3.5-5.5); Sodium, Blood 137 mmol/L (136-145)
[2021-05-24 10:29] LABS: Source, Urine Clean Catch
[2021-05-24 10:42] LABS: Appearance, Urine Clear (Clear); Bilirubin, Urine Neg (Neg); Blood, Urine 2+ (Neg); Color, Urine Yellow (P-Yellow); Glucose Qualitative, Urine Neg (Neg); Ketones, Urine Neg (Neg); Leukocyte Esterase, Urine Neg (Neg); Nitrite, Urine Neg (Neg); Protein, Urine 3+ (Neg); Urobilinogen, Urine NORM (Normal)
[2021-05-24 10:55] LABS: Appearance, Urine Clear (Clear); Bilirubin, Urine Neg (Neg); Blood, Urine 2+ (Neg); Color, Urine Yellow (P-Yellow); Glucose Qualitative, Urine Neg (Neg); Ketones, Urine Neg (Neg); Leukocyte Esterase, Urine Neg (Neg); Nitrite, Urine Neg (Neg); Protein, Urine 3+ (Neg); Specific Gravity, Urine 1.025 (1.003-1.022); Urobilinogen, Urine NORM (Normal)
[2021-05-24 11:15] LABS: Hyaline Casts Rare /lpf (0-2); Red Blood Cells, Urine 0-2 /hpf (0-2)
[2021-05-24 11:16] LABS: Amorphous Light (0-Heavy)
[2021-05-24 11:17] LABS: Bacteria Rare /hpf; Granular Casts Rare /lpf (0); Squamous Epithelial Cells Not Seen /hpf (Few)
[2021-05-24 11:18] LABS: White Blood Cells, Urine 0-2 /hpf (0-5)
[2021-05-24 16:49] LABS: Bun/Creatinine Ratio 13.1 (12.0-20.0); Calcium, Blood 8.8 mg/dL (8.5-10.1); Creatinine, Blood 2.6 mg/dL (0.60-1.20); Potassium, Blood 4.4 mmol/L (3.5-5.5)
--- NOTE | 2021-05-24 17:52 | NUR ---
ALERT. ORIENTED. PLEASANT. COOPERATIVE. IV INFUSING. USES URINAL AT BEDSIDE. TELE ON. [facility]
--- NOTE | 2021-05-25 06:02 | NUR ---
shift superintendent summary pt a/o x3 with forgetfulness. slept well tonight. pleasant aqnd cooperative. denies pain, nausea. continues to be on 2l o2 via nc satting in the mid 90's. sob with coughs. pt had no complaints. vss. bed alarm on, call light within reach, will continue to monitor.
[2021-05-25 06:27] LABS: Albumin, Blood 2.2 g/dL (3.4-5.0); Anion Gap 7 mmol/L (6-16); Blood Urea Nitrogen 36 mg/dL (8-24); Bun/Creatinine Ratio 14.5 (12.0-20.0); CO2, Blood 25 mmol/L (21-32); Calcium, Blood 8.5 mg/dL (8.5-10.1); Chloride, Blood 106 mmol/L (98-108); Creatinine, Blood 2.49 mg/dL (0.60-1.20); Glomerular Filtration Rate 27 (60-); Glucose, Blood 182 mg/dL (70-99); Phosphorus, Blood 3.6 mg/dL (2.5-4.9); Sodium, Blood 138 mmol/L (136-145)
[2021-05-25 08:18] LABS: BASOPHILS ABSOLUTE AUTO 0.02 K/mm3 (0.00-0.23); BASOPHILS PERCENT AUTO 0 % (0-2); EOSINOPHILS ABSOLUTE AUTO 0.02 K/mm3 (0.00-0.68); EOSINOPHILS PERCENT AUTO 0 % (0-6); Hematocrit 34.2 % (37.0-53.0); Hemoglobin 11.3 g/dL (13.5-17.5); IMMATURE GRAN ABSOLUTE AUTO 0.07 K/mm3 (0.00-0.10); IMMATURE GRAN PERCENT AUTO 1 % (0-1); LYMPHOCYTES ABSOLUTE AUTO 0.42 K/mm3 (0.84-5.20); LYMPHOCYTES PERCENT AUTO 4 % (21-46); MONOCYTES ABSOLUTE AUTO 0.43 K/mm3 (0.16-1.47); MONOCYTES PERCENT AUTO 4 % (4-13); Mean Corpuscular HGB 30.2 pg (26.0-34.0); Mean Corpuscular Volume 91 fL (80-100); Mean Platelet Volume 11.4 fL (9.1-12.4); NEUTROPHILS PERCENT AUTO 90 % (41-73); Platelet Count 162 K/mm3 (150-400); RDW Coefficient Variation 14.7 % (11.7-14.2); RDW Standard Deviation 49.4 fL (35.1-46.3); Red Blood Cell Count 3.74 M/mm3 (4.30-5.90); White Blood Cell Count 9.76 K/mm3 (4.00-11.30)
[2021-05-25 08:43] LABS: BAND PERCENT MAN 1 % (0-8); BASOPHILS ABSOLUTE MAN 0.09 K/mm3 (0.00-0.23); BASOPHILS PERCENT MAN 1 % (0-2); EOSINOPHILS PERCENT MAN 0 % (0-6); LYMPHOCYTES ABSOLUTE MAN 0.48 K/mm3 (0.84-5.20); LYMPHOCYTES PERCENT MAN 5 % (21-46); MONOCYTES ABSOLUTE MAN 0.09 K/mm3 (0.16-1.47); MONOCYTES PERCENT MAN 1 % (4-13); NEUTROPHILS ABSOLUTE MAN 9.07 K/mm3 (1.96-9.15); SEG NEUTROPHILS PERCENT MAN 92 % (41-73); TOTAL CELLS COUNTED 100
--- NOTE | 2021-05-25 17:41 | NUR ---
PT PLEASANT AND COOPERATIVE, 2LNC REMAINS, HE IS SOB WITH EXERTION AND AUDIBE WHEEZES HEARD WHEN HE MOVES AROUND. FORGETFULL AT TIMES. NO ACUTE CHANGES NOTED THIS SHIFT, WILL CONTINUE TO MONITOR AND REPORT TO ONCOMING RN
--- NOTE | 2021-05-26 03:44 | NUR ---
BELLHOP CAPTAIN SUMMARY PT A/O X3-4. SLEPT WELL TONIGHT. HYPERTENSIVE THIS MORNING. PT WOKE UP WITH HEADACHE AND RIGHT SHOULDER PAIN THIS MORNING. ABLE TO MAKE NEEDS KNOWN APPROPRIATELY. MEDICATED FOR PAIN PER EMAR, ICE PACK PROVIDED TO RIGHT SHOULDER. PT STATED WHEN HE FELL BEFORE, HE HIT HIS RIGHT SHOULDER. MEDICATED FOR HYPERTENSION PER EMAR. BLADDER SCANNED THIS MORNING WITH POST VOID RESIDULE OF 9ML. WILL CONTINUE TO MONITOR. CALL LIGHT WITHIN REACH, BED ALARM ON.
[2021-05-26 06:33] LABS: Hematocrit 33.4 % (37.0-53.0); Hemoglobin 10.9 g/dL (13.5-17.5); Mean Corpuscular HGB 30.2 pg (26.0-34.0); Mean Corpuscular HGB Conc 32.6 g/dL (31.5-36.5); Mean Corpuscular Volume 93 fL (80-100); Mean Platelet Volume 10.5 fL (9.1-12.4); Platelet Count 184 K/mm3 (150-400); RDW Coefficient Variation 14.8 % (11.7-14.2); RDW Standard Deviation 50.4 fL (35.1-46.3); Red Blood Cell Count 3.61 M/mm3 (4.30-5.90); White Blood Cell Count 13.77 K/mm3 (4.00-11.30)
[2021-05-26 06:49] LABS: Albumin, Blood 2.3 g/dL (3.4-5.0); Anion Gap 5 mmol/L (6-16); Blood Urea Nitrogen 38 mg/dL (8-24); Bun/Creatinine Ratio 16.1 (12.0-20.0); CO2, Blood 27 mmol/L (21-32); Calcium, Blood 8.6 mg/dL (8.5-10.1); Chloride, Blood 109 mmol/L (98-108); Creatinine, Blood 2.36 mg/dL (0.60-1.20); Glomerular Filtration Rate 29 (60-); Glucose, Blood 137 mg/dL (70-99); Potassium, Blood 3.9 mmol/L (3.5-5.5); Sodium, Blood 141 mmol/L (136-145)
[2021-05-26 07:00] LABS: BASOPHILS PERCENT MAN 0 % (0-2); EOSINOPHILS ABSOLUTE MAN 0.13 K/mm3 (0.00-0.68); EOSINOPHILS PERCENT MAN 1 % (0-6); LYMPHOCYTES ABSOLUTE MAN 0.96 K/mm3 (0.84-5.20); LYMPHOCYTES PERCENT MAN 7 % (21-46); MONOCYTES PERCENT MAN 8 % (4-13); NEUTROPHILS ABSOLUTE MAN 11.56 K/mm3 (1.96-9.15); SEG NEUTROPHILS PERCENT MAN 84 % (41-73); TOTAL CELLS COUNTED 100
[2021-05-26 13:58] LABS: Free Thyroxine 0.91 ng/dL (0.70-1.60)
[2021-05-26 14:00] LABS: Thyroid Stimulating Hormone 1.45 uIU/mL (0.360-4.800); Triiodothyronine, Free 1.91 pg/mL (2.18-3.98)
--- NOTE | 2021-05-26 18:20 | NUR ---
PT WITH PRODUCTIVE COUGH THIS MORNING, WHEEZES T/O WITH CRACKLES, COUGHING, UNABLE TO CATCH HIS BREATH, DECREASED SATS INTO THE 80'S. RT AND DR KABA TO BEDSIDE, ORDERS FOR PT/OT/ST AND CXR PLACED BY DR KABA AND DR PAL-RESIDENT. COUGHING SLOWED, PT RECOVERED, EVAL DONE BY SPEECH, SEE NOTE FOR DIET TEXTURE CHANGE. 40MG IV LASIX X1 GIVEN AT 14O6 AFTER CXR COMPLETED. PT TOLERATED WELL, PUTTING OUT LARGE AMOUNTS OF CLEAR, PALE YELLOW URINE. WILL CONTINUE TO MONITOR AND REPORT TO ONCOMING RN.
--- NOTE | 2021-05-26 18:33 | NUR ---
PT WITH MECHANICAL SOFT DIET FOR DINNER, NOT TOLERATING THE GROUND MEAT, CHOKING AND COUGHING. TRAY REMOVED, WILL RELAY TO ONCOMING RN AND UNIVERSAL BANKER
--- NOTE | 2021-05-27 06:29 | NUR ---
SUMMARY NO NEW CHANGES. PT SLEPT WELL T/O SHIFT. PT DENIES SOB DURING NIGHT. PT DOES REPORT SOB W/ EXERTION THIS AM. PT REPORTS SOME COGHING THIS AM. PT AWAKE AND IN NO DISTRESS. CALL LIGHT IN REACH AND BED ALARM ON.
[2021-05-27 07:25] LABS: Albumin, Blood 2.5 g/dL (3.4-5.0); Anion Gap 7 mmol/L (6-16); Blood Urea Nitrogen 36 mg/dL (8-24); Bun/Creatinine Ratio 15.3 (12.0-20.0); CO2, Blood 27 mmol/L (21-32); Calcium, Blood 8.6 mg/dL (8.5-10.1); Chloride, Blood 108 mmol/L (98-108); Creatinine, Blood 2.35 mg/dL (0.60-1.20); Glomerular Filtration Rate 29 (60-); Glucose, Blood 115 mg/dL (70-99); Phosphorus, Blood 2.7 mg/dL (2.5-4.9); Potassium, Blood 3.6 mmol/L (3.5-5.5); Sodium, Blood 142 mmol/L (136-145)
[2021-05-27 09:10] LABS: BASOPHILS ABSOLUTE AUTO 0.02 K/mm3 (0.00-0.23); BASOPHILS PERCENT AUTO 0 % (0-2); EOSINOPHILS ABSOLUTE AUTO 0.24 K/mm3 (0.00-0.68); EOSINOPHILS PERCENT AUTO 2 % (0-6); Hematocrit 33.1 % (37.0-53.0); Hemoglobin 10.9 g/dL (13.5-17.5); IMMATURE GRAN PERCENT AUTO 1 % (0-1); LYMPHOCYTES ABSOLUTE AUTO 0.75 K/mm3 (0.84-5.20); LYMPHOCYTES PERCENT AUTO 7 % (21-46); MONOCYTES ABSOLUTE AUTO 0.65 K/mm3 (0.16-1.47); MONOCYTES PERCENT AUTO 6 % (4-13); Mean Corpuscular HGB 30.6 pg (26.0-34.0); Mean Corpuscular HGB Conc 32.9 g/dL (31.5-36.5); Mean Corpuscular Volume 93 fL (80-100); Mean Platelet Volume 11.3 fL (9.1-12.4); NEUTROPHILS ABSOLUTE AUTO 8.71 K/mm3 (1.96-9.15); NEUTROPHILS PERCENT AUTO 83 % (41-73); Platelet Count 207 K/mm3 (150-400); RDW Coefficient Variation 14.9 % (11.7-14.2); RDW Standard Deviation 50.9 fL (35.1-46.3); Red Blood Cell Count 3.56 M/mm3 (4.30-5.90); White Blood Cell Count 10.47 K/mm3 (4.00-11.30)
--- NOTE | 2021-05-27 19:33 | NUR ---
END OF SHIFT SUMMARY: PATIENT REPORTED SOME MILD NAUSEA THIS MORNING. PATIENT REPORTED IMPROVEMENT AFTER MEDICATED WITH PRNS (SEE EMAR). PATIENT REPORTED THAT HE CONTINUES TO HAVE A MINIMAL APPETITE REGARDLESS. PATIENT REPORTED HEADACHE THIS MORNING. PATIENT HAD ELEVATED BP THIS MORNING. MEDICATED WITH SCHEDULED AND PRN MEDICATIONS. DISCUSSED WITH DR. KABA. PATIENTT DENIED CHEST PAIN, SHORTNESS OF BREATH, OR OTHER DISCOMFORT. HEADACHED RESOLVED WITH PRN MEDICATIONS. BP DECREASED WITH MEDICATIONS (SEE VITALS). PATIENT UP TO THE CHAIR AND RECLINER THROUGHOUT THE DAY. PATIENT AMBULATED IN THE HALLWAY WITH PT AND FWW. PATIENT TOLERATED WELL, WAS STEADY ON HIS FEET, AND USED HIS WALKER APPROPRIATELY. PATIENT'S IN THE ROOM TO VISIT THE PATIENT. SHE IS REQUESTING A PHONE CALL TOMORROW FROM THE MD IF POSSIBLE. PASSED ON TO GURU JERNIGAN.
--- NOTE | 2021-05-28 04:24 | NUR ---
SHIFT SUMMARY A/OX3, PLEASANT AND COOPERATIVE WITH CARE. DENIES PAIN OR SOB. TELE SR IN THE 90'S. COLOSTOMY TO LLQ WITH UNFORMED BROWN OUTPUT. VSS, NO ACUTE CHANGES AT THIS TIME. BED IN LOWEST POSITION WITH CALL LIGHT IN REACH. WILL CONTINUE TO MONITOR AND REPORT TO ONCOMING RN.
[2021-05-28 04:55] LABS: Albumin, Blood 2.6 g/dL (3.4-5.0); Anion Gap 7 mmol/L (6-16); Blood Urea Nitrogen 35 mg/dL (8-24); Bun/Creatinine Ratio 15.2 (12.0-20.0); CO2, Blood 29 mmol/L (21-32); Calcium, Blood 8.9 mg/dL (8.5-10.1); Chloride, Blood 106 mmol/L (98-108); Creatinine, Blood 2.31 mg/dL (0.60-1.20); Glomerular Filtration Rate 30 (60-); Glucose, Blood 108 mg/dL (70-99); Phosphorus, Blood 3.3 mg/dL (2.5-4.9); Potassium, Blood 3.5 mmol/L (3.5-5.5); Sodium, Blood 142 mmol/L (136-145)
--- NOTE | 2021-05-28 18:28 | NUR ---
END OF SHIFT SUMMARY: PATIENT REPORTED MILD HEADACHE THIS MORNING. MEDICATED PER PRNS. PATIENT EXPERIENCED ELEVATED BP THIS MORNING. BP RESPONDED TO SCHEDULED MEDICATIONS AND CAME DOWN BELOW THE PARAMETERS FOR PRN BLOOD PRESSURE MEDICATIONS. PATIENT REPORTED RELIEF FROM HIS HEADACHE. PATIENT UP TO THE CHAIR FOR MOST OF THE DAY. PATIENT'S BIGGEST COMPLAINT WAS NOT HAVING ANYTHING TO DO. PATIENT REPORTED THAT HE FEELS BETTER THAN YESTERDAY AND THAT HE IS READY TO GO HOME. WAS AT BEDSIDE THIS AFTERNOON AND IS UP TO DATE WITH THE PATIENT'S PLAN OF CARE.
--- NOTE | 2021-05-28 20:02 | NUR ---
AMA: LATE ENTRY: AT 1840 PATIENT WAS CRYING IN HIS ROOM AND STATING THAT HE HAD HAD ENOUGH AND WAS READY TO GO HOME. PROVIDED SUPPORT, EDUCATION, AND ENCOURAGED THE PATIENT TO STAY. NOTIFIED DR. JOSUE. DR. JOSUE ROUNDED ON THE PATIENT IN HIS ROOM. MULTIPLE STAFF ATTEMPTED TO GET THE PATIENT TO STAY THE NIGHT. PATIENT STILL DETERMINED TO LEAVE AMA. PATIENT'S CAME TO THE HOSPITAL TO PERFECT BIND MACHINE OPERATOR THE PATIENT. PATIENT DISCHARGED IN WHEELCHAIR. PATIENT STABLE AT TIME OF LEAVING THE HOSPITAL.
== END 2021-05-28 19:18 | disposition left against medical advice (07) | DRG 682 ==
LOC: ER 13:28 → MEDS 13:29
PROVIDERS: Family Medicine; Internal Medicine; Physician Assistant; ADMIT Internal Medicine
DX: N17.9 Acute kidney failure, unspecified (principal); I50.43 Acute on chronic combined systolic (congestive) and diastolic (congestive) heart failure; J69.0 Pneumonitis due to inhalation of food and vomit; R65.11 Systemic inflammatory response syndrome (SIRS) of non-infectious origin with acute organ dysfunction; J96.01 Acute respiratory failure with hypoxia; I13.0 Hypertensive heart and chronic kidney disease with heart failure and stage 1 through stage 4 chronic kidney disease, or unspecified chronic kidney disease; E11.22 Type 2 diabetes mellitus with diabetic chronic kidney disease; J44.9 Chronic obstructive pulmonary disease, unspecified; M35.3 Polymyalgia rheumatica; G47.33 Obstructive sleep apnea (adult) (pediatric); F32.9 Major depressive disorder, single episode, unspecified; Z85.46 Personal history of malignant neoplasm of prostate; E87.6 Hypokalemia; Z88.5 Allergy status to narcotic agent; Z88.8 Allergy status to other drugs, medicaments and biological substances; Z88.2 Allergy status to sulfonamides; Z79.899 Other long term (current) drug therapy; Z79.4 Long term (current) use of insulin; F17.210 Nicotine dependence, cigarettes, uncomplicated; K59.00 Constipation, unspecified; M06.9 Rheumatoid arthritis, unspecified; I25.10 Atherosclerotic heart disease of native coronary artery without angina pectoris; E11.42 Type 2 diabetes mellitus with diabetic polyneuropathy; G89.29 Other chronic pain; M54.9 Dorsalgia, unspecified; Z86.73 Personal history of transient ischemic attack (TIA), and cerebral infarction without residual deficits
CPT/HCPCS: 36415; 71045; 71046; 76536; 76770; 80048; 80053; 80069; 81001; 82947; 83735; 84145; 84439; 84443; 84481; 85007; 85025; 85027; 87040; 92610; 93005; 93010; 94640; 94667; 94668; 94760; 97110; 97116; 97162; 97166; 97530; 97535; 99285-25; A9270; J0360; J0696; J1650; J1940; J2405; J3480; J7030; J7040; J7120

== ENCOUNTER 2021-06-02 16:14 | Emergency (ER) | payer OTHER, MEDICARE ==
[~2021-06-02] VITALS: Ht 177.8 cm; Wt 96.6 kg
[~2021-06-02 16:14] MED LIST changes: +BUPR100ER PO
[2021-06-02 17:27] LABS: BASOPHILS ABSOLUTE AUTO 0.07 K/mm3 (0.00-0.23); BASOPHILS PERCENT AUTO 1 % (0-2); EOSINOPHILS ABSOLUTE AUTO 0.31 K/mm3 (0.00-0.68); EOSINOPHILS PERCENT AUTO 3 % (0-6); Hematocrit 40.9 % (37.0-53.0); Hemoglobin 13.6 g/dL (13.5-17.5); IMMATURE GRAN ABSOLUTE AUTO 0.13 K/mm3 (0.00-0.10); IMMATURE GRAN PERCENT AUTO 1 % (0-1); LYMPHOCYTES ABSOLUTE AUTO 1.06 K/mm3 (0.84-5.20); LYMPHOCYTES PERCENT AUTO 8 % (21-46); MONOCYTES ABSOLUTE AUTO 0.75 K/mm3 (0.16-1.47); MONOCYTES PERCENT AUTO 6 % (4-13); Mean Corpuscular HGB Conc 33.3 g/dL (31.5-36.5); Mean Corpuscular Volume 90 fL (80-100); Mean Platelet Volume 10.2 fL (9.1-12.4); NEUTROPHILS ABSOLUTE AUTO 10.25 K/mm3 (1.96-9.15); NEUTROPHILS PERCENT AUTO 82 % (41-73); Platelet Count 258 K/mm3 (150-400); RDW Coefficient Variation 14.4 % (11.7-14.2); RDW Standard Deviation 47.7 fL (35.1-46.3); Red Blood Cell Count 4.53 M/mm3 (4.30-5.90); White Blood Cell Count 12.57 K/mm3 (4.00-11.30)
[2021-06-02 17:44] LABS: Albumin, Blood 2.8 g/dL (3.4-5.0); Albumin/Globulin Ratio 0.7 (0.8-1.8); Bilirubin, Total 0.3 mg/dL (0.1-1.0); Bun/Creatinine Ratio 12.8 (12.0-20.0); Calcium, Blood 8.9 mg/dL (8.5-10.1); Creatinine, Blood 2.65 mg/dL (0.60-1.20); Potassium, Blood 3.5 mmol/L (3.5-5.5); Total Protein, Blood 6.8 g/dL (6.4-8.2)
[2021-06-02 18:34] LABS: Source, Urine Voided
[2021-06-02 18:36] LABS: Bilirubin, Urine Neg (Neg); Blood, Urine 2+ (Neg); Glucose Qualitative, Urine Neg (Neg); Ketones, Urine Neg (Neg); Leukocyte Esterase, Urine Neg (Neg); Nitrite, Urine Neg (Neg); Protein, Urine 4+ (Neg); Urobilinogen, Urine NORM (Normal)
[2021-06-02 19:09] LABS: Appearance, Urine Clear (Clear); Color, Urine Yellow (P-Yellow)
[2021-06-02 19:11] LABS: Amorphous Light (0-Heavy); Bacteria Few /hpf; Squamous Epithelial Cells Mod /hpf (Few); White Blood Cells, Urine Not Seen /hpf (0-5)
== END 2021-06-02 22:03 | disposition home or self-care (01) ==
LOC: ER 16:14
PROVIDERS: Physician Assistant
DX: I13.0 Hypertensive heart and chronic kidney disease with heart failure and stage 1 through stage 4 chronic kidney disease, or unspecified chronic kidney disease (principal); E11.22 Type 2 diabetes mellitus with diabetic chronic kidney disease; N18.30 Chronic kidney disease, stage 3 unspecified; I50.9 Heart failure, unspecified; E78.5 Hyperlipidemia, unspecified; E11.42 Type 2 diabetes mellitus with diabetic polyneuropathy; F17.210 Nicotine dependence, cigarettes, uncomplicated; Z88.2 Allergy status to sulfonamides; Z88.5 Allergy status to narcotic agent; Z79.899 Other long term (current) drug therapy
CPT/HCPCS: 36415; 72170; 80053; 81001; 82947; 85025; 96374; 96375; 99283-25; J0360

== ENCOUNTER 2021-06-21 14:47 | Inpatient (IN) | payer OTHER ==
[~2021-06-21] VITALS: Ht 177.8 cm; Wt 96.1 kg
[2021-06-21 15:24] LABS: BASOPHILS ABSOLUTE AUTO 0.05 K/mm3 (0.00-0.23); BASOPHILS PERCENT AUTO 0 % (0-2); EOSINOPHILS ABSOLUTE AUTO 0.03 K/mm3 (0.00-0.68); EOSINOPHILS PERCENT AUTO 0 % (0-6); Hematocrit 36.5 % (37.0-53.0); Hemoglobin 12.3 g/dL (13.5-17.5); IMMATURE GRAN ABSOLUTE AUTO 0.24 K/mm3 (0.00-0.10); IMMATURE GRAN PERCENT AUTO 1 % (0-1); LYMPHOCYTES ABSOLUTE AUTO 0.39 K/mm3 (0.84-5.20); LYMPHOCYTES PERCENT AUTO 2 % (21-46); MONOCYTES ABSOLUTE AUTO 0.49 K/mm3 (0.16-1.47); MONOCYTES PERCENT AUTO 3 % (4-13); Mean Corpuscular HGB 30.4 pg (26.0-34.0); Mean Corpuscular HGB Conc 33.7 g/dL (31.5-36.5); Mean Corpuscular Volume 90 fL (80-100); Mean Platelet Volume 10.8 fL (9.1-12.4); NEUTROPHILS ABSOLUTE AUTO 16.38 K/mm3 (1.96-9.15); NEUTROPHILS PERCENT AUTO 93 % (41-73); Platelet Count 215 K/mm3 (150-400); RDW Coefficient Variation 14.6 % (11.7-14.2); Red Blood Cell Count 4.05 M/mm3 (4.30-5.90); White Blood Cell Count 17.58 K/mm3 (4.00-11.30)
[2021-06-21 15:56] LABS: Albumin, Blood 2.9 g/dL (3.4-5.0); Albumin/Globulin Ratio 0.8 (0.8-1.8); Bilirubin, Total 0.4 mg/dL (0.1-1.0); Bun/Creatinine Ratio 18.6 (12.0-20.0); Calcium, Blood 8.6 mg/dL (8.5-10.1); Creatinine, Blood 2.26 mg/dL (0.60-1.20); Globulin, Blood 3.6 g/dL (2.2-4.0); Total Protein, Blood 6.5 g/dL (6.4-8.2)
[2021-06-21 16:13] LABS: Troponin I 2.68 ng/mL (0.000-0.040)
[2021-06-21 19:27] LABS: International Normalized Ratio 0.95; Prothrombin Time Results 10.3 Sec (9.7-11.5)
--- NOTE | 2021-06-21 23:08 | NUR ---
CALL TO DR BERMAN THIS RN NOTIFIES DR BERMAN OF PT'S HIGH CBG IN 300'S, ORDER GIVEN FOR 15 UNITS OF LANTUS NOW. AND TO PLACE ORDER FOR AC INSULIN.
[2021-06-22 03:47] LABS: BASOPHILS ABSOLUTE AUTO 0.03 K/mm3 (0.00-0.23); BASOPHILS PERCENT AUTO 0 % (0-2); EOSINOPHILS ABSOLUTE AUTO 0.04 K/mm3 (0.00-0.68); EOSINOPHILS PERCENT AUTO 0 % (0-6); Hematocrit 35.2 % (37.0-53.0); Hemoglobin 11.2 g/dL (13.5-17.5); IMMATURE GRAN ABSOLUTE AUTO 0.17 K/mm3 (0.00-0.10); IMMATURE GRAN PERCENT AUTO 1 % (0-1); LYMPHOCYTES ABSOLUTE AUTO 0.79 K/mm3 (0.84-5.20); LYMPHOCYTES PERCENT AUTO 6 % (21-46); MONOCYTES ABSOLUTE AUTO 0.68 K/mm3 (0.16-1.47); MONOCYTES PERCENT AUTO 5 % (4-13); Mean Corpuscular HGB 29.8 pg (26.0-34.0); Mean Corpuscular HGB Conc 31.8 g/dL (31.5-36.5); Mean Corpuscular Volume 94 fL (80-100); Mean Platelet Volume 10.5 fL (9.1-12.4); NEUTROPHILS ABSOLUTE AUTO 11.67 K/mm3 (1.96-9.15); NEUTROPHILS PERCENT AUTO 87 % (41-73); Platelet Count 181 K/mm3 (150-400); RDW Coefficient Variation 14.7 % (11.7-14.2); RDW Standard Deviation 50.1 fL (35.1-46.3); Red Blood Cell Count 3.76 M/mm3 (4.30-5.90); White Blood Cell Count 13.38 K/mm3 (4.00-11.30)
[2021-06-22 04:12] LABS: Bun/Creatinine Ratio 18.1 (12.0-20.0); Calcium, Blood 8.4 mg/dL (8.5-10.1); Creatinine, Blood 2.21 mg/dL (0.60-1.20); Potassium, Blood 3.6 mmol/L (3.5-5.5)
[2021-06-22 04:13] LABS: Troponin I 3.88 ng/mL (0.000-0.040)
--- NOTE | 2021-06-22 04:52 | NUR ---
CALL TO DR MELISSA TORRES NOTIFIED OF PT SOB AND DYSPNEA, DISCUSSED CONCERN FOR FLUID OVERLOAD R/T CHF AND LABORED BREATHING. SATS STABLE ON 2 L VIA NC. DISCUSSED POSSIBLE ORDER FOR DIURETIC. D/T PT'S KIDNEY FUNCTION, DR TORRES DEFERS FURTHER ORDERS FOR DIURETIC TO DAY PROVIDER. ORDERS TO CONTINUE TO PROVIDE SUPPORTIVE TX TO PT W/O2 THERAPY/RT PROTOCOL W/NEB PRN. NOTIFIED OF TROPONIN TRENDING.
--- NOTE | 2021-06-22 07:47 | NUR ---
SHIFT SUMMARY PT AOX4, BREATHING APPEARS LABORED W/WHEEZING THROUGH SHIFT, PT DENIES SOB AT TIMES. SATS 95-97% ON 4 L VIA NC, TITRATED DOWN TO 2 L VIA NC DURING SHIFT, SATS 92-94% ON 2 L DESPITE APPEARANCE OF DYSPNEA. HEPARIN INFUSING AND DOSE ADJUSTED PER PHARMACY CONSULT AND APTT RESULTS. SINUS 80'S-90'S. DENIES CP THROUGHOUT SHIFT. PT MEDICATED WITH ORDERED 15 UNITS OT OF LANTUS SC. GLUCOSE IMPROVED FROM 300'S TO 160 THIS AM. CARDIOLOGY CONSULT CALLED. OSTOMY NOT NEEDED TO BE EMPTIED BY THIS RN.
[2021-06-22] MEDS ORDERED: TERA5 PO (11:52)
--- NOTE | 2021-06-22 18:53 | NUR ---
SHIFT SUMMARY PT REMAINS ON THE HEPARIN GTT AND HAD A SLIGHT INCREASE IN THE RATE THIS MORNING. PT DENIES CHEST PAIN AND HAD SOME SOB THIS MORNING BUT THAT HAS IMPROVED WITH LASIX. CARDIOLOGY OPTED TO WAIT ON THE ANGIO THE PT'S KIDNEY FUNCTION IS LOW. NEPHROLOGY WAS CONSULTED AND THE PT HAD SEVERAL LABS ORDERED WELL ULTRASOUND AND A NEW MEDICATION. PT REMAINS ON 2L O2 AND HIS BP IS STABLE. CARDIOLOGY WILL REVIEW PT'S LABS TOMORROW AND DECIDE TO DO ANGIO OR TO WAIT ANOTHER DAY. PT HAS AN OSTOMY BAG AND HIS APPLIANCE SUPPLIES ARE IN THE NIGHTSTAND; HIS CHANGED THE APPLIANCE LAST ON 06/21/21, PT EMPTIED IT TODAY TWICE. PT IS RESTING IN BED AT THIS TIME
[2021-06-23 01:01] LABS: Hematocrit 35.6 % (37.0-53.0); Hemoglobin 11.7 g/dL (13.5-17.5); Mean Corpuscular HGB Conc 32.9 g/dL (31.5-36.5); Mean Corpuscular Volume 91 fL (80-100); Mean Platelet Volume 10.1 fL (9.1-12.4); Platelet Count 180 K/mm3 (150-400); RDW Coefficient Variation 14.6 % (11.7-14.2); RDW Standard Deviation 49.1 fL (35.1-46.3)
[2021-06-23 01:17] LABS: Albumin, Blood 2.6 g/dL (3.4-5.0); Anion Gap 6 mmol/L (6-16); Blood Urea Nitrogen 38 mg/dL (8-24); Bun/Creatinine Ratio 15.7 (12.0-20.0); CO2, Blood 30 mmol/L (21-32); Calcium, Blood 8.4 mg/dL (8.5-10.1); Chloride, Blood 104 mmol/L (98-108); Creatinine, Blood 2.42 mg/dL (0.60-1.20); Glomerular Filtration Rate 26 (60-); Glucose, Blood 144 mg/dL (70-99); Magnesium, Blood 2.3 mg/dL (1.6-2.4); Phosphorus, Blood 3.5 mg/dL (2.5-4.9); Potassium, Blood 3.5 mmol/L (3.5-5.5); Sodium, Blood 140 mmol/L (136-145)
--- NOTE | 2021-06-23 05:38 | NUR ---
SHIFT SUMMARY NO ACUTE CHANGES THIS SHIFT. VSS. PT AXO. ON 4LNC. IN SR. REMAINS ON HEPARIN GTT. DENYING CP/PRESSURE. OSTOMY INTACT. PT NPO AT MIDNIGHT FOR POSSIBLE ANGIO. PT HAS BEEN RESTING T/O SHIFT. WCTM.
--- NOTE | 2021-06-23 18:10 | NUR ---
PT HAS BEEN UP TO BEDSIDE T/O THE DAY IN CHAIR. NADN. VSS. DENIES CP AND SOB. ANSWERS QUESTIONS IN FULL SENTENCES. PLAN FOR PT TO GO FOR ANGIO IN THE AM WILL BE NPO AT MDN FOR ANGIO, PT IS AWARE. THERE ARE NO OTHER ACUTE CHANGES THIS SHIFT
[2021-06-24 05:30] LABS: Hematocrit 38.2 % (37.0-53.0); Hemoglobin 12.5 g/dL (13.5-17.5)
--- NOTE | 2021-06-24 05:37 | NUR ---
SHIFT SUMMARY NO [place] CHANGES THIS SHIFT. VSS. REMAINS ON HEPARIN GTT. CONTINUES TO DENY CP/PRESSURE. NPO POST MIDNIGHT FOR POSSIBLE ANGIO THIS AM. AXO. SR. ON RA. OSTOMY INTACT. VOIDING WELL. PT USING CALL LIGHT APPROPRIATELY. BED ALARM ON. WCTM.
[2021-06-24 05:52] LABS: Albumin, Blood 2.6 g/dL (3.4-5.0); Anion Gap 7 mmol/L (6-16); Blood Urea Nitrogen 35 mg/dL (8-24); CO2, Blood 28 mmol/L (21-32); Calcium, Blood 8.8 mg/dL (8.5-10.1); Chloride, Blood 103 mmol/L (98-108); Creatinine, Blood 2.33 mg/dL (0.60-1.20); Glomerular Filtration Rate 28 (60-); Glucose, Blood 126 mg/dL (70-99); Magnesium, Blood 2.4 mg/dL (1.6-2.4); Phosphorus, Blood 3.9 mg/dL (2.5-4.9); Potassium, Blood 3.5 mmol/L (3.5-5.5); Sodium, Blood 138 mmol/L (136-145)
--- NOTE | 2021-06-24 18:11 | NUR ---
AT THE START OF THE SHIFT, PT'S FSBS WERE VERY LOW IN THE 60'S. PT'S HOME INSULIN PUMP WAS PAUSED AND PT WAS ENCOURAGED TO EAT. FSBS SLOWLY LEANA BACK UP ABOVE 150 AND INSULIN PUMP WAS RESUMED. PT EXPERIENCED NAUSEA THIS MORNING, ORDER WAS OBTAINED FOR ZOFRAN WITH GOOD EFFECT. PT UP TO CHAIR FOR MOST OF THE AFTERNOON. SUCESSFUL LARGE BOWEL MOVEMENT TODAY WITH OCCULT STOOL SAMPLE SENT PER MD ORDERS. PT'S UPDATED VIA TELEPHONE BY THIS RN. NO ACUTE EVENTS. VSS. WILL CONTINUE TO MONITOR AND GIVE REPORT TO NOC RN.
[2021-06-25 04:45] LABS: Hematocrit 36.8 % (37.0-53.0); Hemoglobin 12.2 g/dL (13.5-17.5)
--- NOTE | 2021-06-25 04:57 | NUR ---
SHIFT SUMMARY NO ACUTE CHANGES THIS SHIFT. VSS. AXO. IN SR. ON RA. DENYING CP/PRESSURE T/O SHIFT. PT NPO SINCE MIDNIGHT AND HAS NOT HAD ANY CAFFEINE THIS SHIFT. HEPARIN CONTINUES TO INFUSE ORDERED. NO EVENTS NOTED ON TELEMETRY. OTHERWISE, PT HAS RESTED T/O MAJORITY OF SHIFT. WCTM.
[2021-06-25 05:03] LABS: Albumin, Blood 2.8 g/dL (3.4-5.0); Anion Gap 8 mmol/L (6-16); Blood Urea Nitrogen 36 mg/dL (8-24); Bun/Creatinine Ratio 14.6 (12.0-20.0); CO2, Blood 27 mmol/L (21-32); Calcium, Blood 9.1 mg/dL (8.5-10.1); Chloride, Blood 102 mmol/L (98-108); Creatinine, Blood 2.46 mg/dL (0.60-1.20); Glomerular Filtration Rate 26 (60-); Glucose, Blood 159 mg/dL (70-99); Magnesium, Blood 2.3 mg/dL (1.6-2.4); Phosphorus, Blood 3.8 mg/dL (2.5-4.9); Potassium, Blood 3.3 mmol/L (3.5-5.5); Sodium, Blood 137 mmol/L (136-145)
--- NOTE | 2021-06-25 09:38 | NUR ---
ASSUMED CARE 0700. PT A/O X4. NPO EXCEPT WATER AT THIS TIME FOR STRESS TEST. STRESS TEST IN PROGRESS THIS AM, STARTING AROUND 0900.
--- NOTE | 2021-06-25 17:03 | NUR ---
SHIFT SUMMARY PT IS A/O X4, SBA UP IN ROOM. PT HAD STRESS TEST TODAY; PROVIDER AWARE OF RESULTS. CUFF MATCHER ON BOARD. PT HAS BEEN MANAGING COLOSTOMY IND. DENIES CHEST PAIN/PRESSURE. PT HAS BEEN UP TO CHAIR TODAY. TOLERATING PO INTAKE AND VOIDING. NO ACUTE CHANGES. RESTING AT THIS TIME.
--- NOTE | 2021-06-25 19:42 | NUR ---
ASSUMED CARE PT IS ALERT AND ORIENTED X4, [place]. PT DENIES CHEST PAIN OR SOB. BP IS ELEVATED AND MEDICATED WITH EMAR ORDER. ALL OTHER VITALS ARE STABLE. CALL LIGHT IS WITHIN REACH. WILL CONTINUE TO MONITOR.
--- NOTE | 2021-06-25 23:59 | NUR ---
PT IS VERY PAINFUL DUE TO A PAINFUL AREA IN THE RIGHT UPPER THIGH. THERE IS SWELLING, WARMTH, BRUISING AND TIGHTNESS IN THE AREA. PT REPORTS PAIN OF 12/10.
[2021-06-26 04:33] LABS: Hematocrit 28.1 % (37.0-53.0); Hemoglobin 9.1 g/dL (13.5-17.5)
[2021-06-26 04:59] LABS: Albumin, Blood 2.4 g/dL (3.4-5.0); Anion Gap 9 mmol/L (6-16); Blood Urea Nitrogen 40 mg/dL (8-24); Bun/Creatinine Ratio 14.5 (12.0-20.0); CHOL/HDL RATIO 3.1; CO2, Blood 26 mmol/L (21-32); Calcium, Blood 8.4 mg/dL (8.5-10.1); Chloride, Blood 97 mmol/L (98-108); Cholesterol 162 mg/dL (50-200); Creatinine, Blood 2.75 mg/dL (0.60-1.20); Glomerular Filtration Rate 23 (60-); Glucose, Blood 167 mg/dL (70-99); HDL Cholesterol 53 mg/dL (>39); LDL/HDL RATIO 1.5; Low Density Lipoprotein Chol 78 mg/dL (0-110); Magnesium, Blood 2.4 mg/dL (1.6-2.4); Phosphorus, Blood 4.8 mg/dL (2.5-4.9); Sodium, Blood 132 mmol/L (136-145); Triglycerides 157 mg/dL (30-160); Very Low Density Lipoprot Chol 31 mg/dL (6-32)
--- NOTE | 2021-06-26 04:59 | NUR ---
SHIFT SUMMARY PT IS ALERT AND ORIENTED X4. PT IS HARD OF HEARING. VITALS HAVE BEEN STABLE AND ON ROOM AIR. DENIES CHEST PAIN BUT DID REPORT SOME SOB AT TIMES. PT HAS BRUSING IN THE BACK RIGHT UPPER THIGH WITH REDNESS, SWELLING, TIGHTNESS AND WARMTH. PT STS THAT IT STARTED YESTERDAY AND LET THE DOCTOR KNOW ABOUT IT. PT REPORTS IT IS A 12/10 WITH MOVEMENT AND 5-6/10 WITH NO MOVEMENT. PT INFUSING HEPARIN. USING URINAL IN BED. CALL LIGHT IS WITHIN REACH.
--- NOTE | 2021-06-26 05:26 | NUR ---
CRITICAL VALUE OF PTT CALLED PHARMACY. MAINE WHIPPLE ORDER TO TURN OFF HEPARIN. HEPARIN TURNED OFF AT 0526.
[2021-06-26 13:16] LABS: Mean Platelet Volume 11.1 fL (9.1-12.4); Platelet Count 181 K/mm3 (150-400)
[2021-06-26 13:17] LABS: Hematocrit 23.3 % (37.0-53.0); Hemoglobin 7.6 g/dL (13.5-17.5)
--- NOTE | 2021-06-26 17:55 | NUR ---
SHIFT SUMMARY PT A&Ox3; [place]; CALM AND COOPERATIVE WITH CARE. PT RESTING IN BED DURING SHIFT. UP WITH 2 PERSON ASSIST TO CHAIR, UNABLE TO STAYIN CHAIR LONG DUE TO PAIN. PT REPORTS PAIN TO RIGHT LOWER EXTREMITY; POSTERIOR THIGH, RIGHT ABOVE KNEE, BRUISING/HEMATOMA NOTED; TENDER AND FIRM ON PALPATIATION; THIS AFTERNOON IT APPEARS TO HAVE INCREASED IN SIZE, MARKED TO WATCH FOR FURTHER GROWTH. PT ON HEPARIN THIS AM, NOTIFIED DR DENNY OF HEMATOMA/BRUISING; NEW ORDERS TO D/C HEPARIN, RECHECK H&H. CALLED DR DENNY WITH RESULTS OF H&H, NEW ORDERS FOR 1 UNIT PRBC, AND RECHECK H&H 1 AFTER TRANSFUSION COMPLETED. PLANS FOR CT OF RLE AFTER TRANSFUSION. PT REPORTS [place], MEDICATED PER EMAR. PT DENIES CHEST PAIN, SOB AND DIZZINESS. BP SOFT THIS EVENING; OTHER VSS. NO OTHER ACUTE CHANGES NOTED. WILL CONTINUE TO MONITOR UNTIL REPORT GIVEN TO ONCOMING RN.
--- NOTE | 2021-06-26 19:30 | NUR ---
ASSUMED CARE PT IS ALERT AND ORIENTED. [place]. PT DENIES CHEST PAIN AND SOB. VITALS ARE STABLE AND IS ON ROOM AIR. PT REPORTS PAINFUL RIGHT THIGH AREA (HEMATOMA). USING URINAL AT BEDSIDE. OSTOMY IN PLACE. CALL LIGHT IS WITHIN REACH. WILL CONTINUE TO MONITOR.
[2021-06-26 21:17] LABS: Hematocrit 24.1 % (37.0-53.0); Hemoglobin 8.1 g/dL (13.5-17.5)
[2021-06-27 04:19] LABS: Hematocrit 23.8 % (37.0-53.0); Hemoglobin 7.8 g/dL (13.5-17.5); Mean Corpuscular HGB 29.4 pg (26.0-34.0); Mean Corpuscular HGB Conc 32.8 g/dL (31.5-36.5); Mean Corpuscular Volume 90 fL (80-100); Mean Platelet Volume 10.6 fL (9.1-12.4); NRBC ABSOLUTE 0.02 K/mm3 (0.00-0.02); NRBC Auto 0.1 /100 WBC (0.0-0.2); Platelet Count 170 K/mm3 (150-400); RDW Coefficient Variation 14.7 % (11.7-14.2); RDW Standard Deviation 47.9 fL (35.1-46.3); Red Blood Cell Count 2.65 M/mm3 (4.30-5.90); White Blood Cell Count 13.84 K/mm3 (4.00-11.30)
[2021-06-27 04:43] LABS: Albumin, Blood 2.3 g/dL (3.4-5.0); Anion Gap 7 mmol/L (6-16); Blood Urea Nitrogen 44 mg/dL (8-24); Bun/Creatinine Ratio 15.1 (12.0-20.0); CO2, Blood 25 mmol/L (21-32); Calcium, Blood 8.3 mg/dL (8.5-10.1); Chloride, Blood 101 mmol/L (98-108); Creatinine, Blood 2.91 mg/dL (0.60-1.20); Glomerular Filtration Rate 21 (60-); Glucose, Blood 160 mg/dL (70-99); Magnesium, Blood 2.5 mg/dL (1.6-2.4); Phosphorus, Blood 5.5 mg/dL (2.5-4.9); Potassium, Blood 4.2 mmol/L (3.5-5.5); Sodium, Blood 133 mmol/L (136-145)
--- NOTE | 2021-06-27 05:57 | NUR ---
SHIFT SUMMARY PT IS ALERT AND ORIENTED X4. PT DENIES CHEST PAIN OR SOB. VITALS HAVE BEEN STABLE AND IS ON ROOM AIR WITH SATS ABOVE 90%. PT IS USING URINAL AT THE BESIDE. WHEN PT WENT TO IMAGING HE WAS VERY UNBALANCED ON HIS FEET AND IS A 1 TO TWO ASSIST. PT REPORTS PAINFUL RIGHT POSTERIOR THIGH; HEMATOMA NOTED WITH CHANGES. USING CALL LIGHT AND COMMUNICATING APPROPRIETLY; [place].
[2021-06-27 12:05] LABS: Hematocrit 22.2 % (37.0-53.0); Hemoglobin 7.5 g/dL (13.5-17.5)
--- NOTE | 2021-06-27 17:05 | NUR ---
DISCHARGE SUMMARY PT A&OX4; CALM AND COOPERAIVE WITH CARE. PT RESTING IN BED DURING SHIFT. UP WITH 1-2 PERSON ASSIST WITH WALKER. PT REPORTS PAIN TO RLE; HEMATOMA NOTES, SLIGHTLY LARGER; MEDICATED PER EMAR. PT DENIES SOB, NAUSEA AND DIZZINESS. PT/OT RECCOMMENDING SNF; PT AND SPOUSE IN AGREEMENT THAT THEY DO NOT WNAT SNF; PLANS FOR HOME HEALTH, PT REQUESTIONG [facility]. VSS. NO OTHER ACUTE CHANGES NOTED. [facility]. EDCUATED PT AND SPOUSE ON DISCHARGE INSTRUCTIONS, FOLLOW UP APPOINTMENTS AND MEDICATIONS. PT LEFT ROOM VIA WHEEL CHAIR AT 1537.
== END 2021-06-27 15:37 | disposition home health service (06) | DRG 280 ==
LOC: ER 14:47 → PCU 18:31
PROVIDERS: Internal Medicine; Internal Medicine Nephrology; Physician Assistant; ADMIT Internal Medicine
DX: I21.4 Non-ST elevation (NSTEMI) myocardial infarction (principal); J18.9 Pneumonia, unspecified organism; I50.43 Acute on chronic combined systolic (congestive) and diastolic (congestive) heart failure; I13.0 Hypertensive heart and chronic kidney disease with heart failure and stage 1 through stage 4 chronic kidney disease, or unspecified chronic kidney disease; N17.9 Acute kidney failure, unspecified; I25.5 Ischemic cardiomyopathy; D63.1 Anemia in chronic kidney disease; E11.22 Type 2 diabetes mellitus with diabetic chronic kidney disease; M06.9 Rheumatoid arthritis, unspecified; I25.10 Atherosclerotic heart disease of native coronary artery without angina pectoris; E11.40 Type 2 diabetes mellitus with diabetic neuropathy, unspecified; E11.51 Type 2 diabetes mellitus with diabetic peripheral angiopathy without gangrene; G89.29 Other chronic pain; M54.5 Low back pain; E78.5 Hyperlipidemia, unspecified; F17.210 Nicotine dependence, cigarettes, uncomplicated; J44.9 Chronic obstructive pulmonary disease, unspecified; N18.30 Chronic kidney disease, stage 3 unspecified; G47.33 Obstructive sleep apnea (adult) (pediatric); Z88.2 Allergy status to sulfonamides; Z88.5 Allergy status to narcotic agent; Z88.8 Allergy status to other drugs, medicaments and biological substances; Z85.46 Personal history of malignant neoplasm of prostate; Z86.73 Personal history of transient ischemic attack (TIA), and cerebral infarction without residual deficits; Z98.1 Arthrodesis status; Z98.890 Other specified postprocedural states; Z79.899 Other long term (current) drug therapy
CPT/HCPCS: 36415; 36430; 71046; 73700; 74176; 76770; 78452; 80048; 80053; 80061; 80069; 82947; 83605; 83735; 83880; 84145; 84484; 85014; 85018; 85025; 85027; 85049; 85610; 85730; 86850; 86900; 86901; 86923; 87040; 93005; 93010; 93017; 93308; 93321; 94640; 94760; 96365; 96368; 97110; 97162; 97166; 97530; 99285-25; A9270; A9500; J0456; J0696; J0706; J1644; J1940; J2405; J2785; J7030; J7050; J7120; P9016

== ENCOUNTER 2021-06-29 15:18 | Inpatient (IN) | payer OTHER ==
[~2021-06-29] VITALS: Ht 177.8 cm; Wt 98.5 kg
[~2021-06-29 15:18] MED LIST changes: +TERA5 PO
[2021-06-29 15:57] LABS: BASOPHILS ABSOLUTE AUTO 0.04 K/mm3 (0.00-0.23); BASOPHILS PERCENT AUTO 0 % (0-2); EOSINOPHILS PERCENT AUTO 1 % (0-6); Hematocrit 23.2 % (37.0-53.0); Hemoglobin 7.4 g/dL (13.5-17.5); IMMATURE GRAN ABSOLUTE AUTO 0.69 K/mm3 (0.00-0.10); IMMATURE GRAN PERCENT AUTO 4 % (0-1); LYMPHOCYTES ABSOLUTE AUTO 0.75 K/mm3 (0.84-5.20); LYMPHOCYTES PERCENT AUTO 4 % (21-46); MONOCYTES ABSOLUTE AUTO 0.96 K/mm3 (0.16-1.47); MONOCYTES PERCENT AUTO 6 % (4-13); Mean Corpuscular HGB 30.7 pg (26.0-34.0); Mean Corpuscular HGB Conc 31.9 g/dL (31.5-36.5); Mean Platelet Volume 10.6 fL (9.1-12.4); NEUTROPHILS ABSOLUTE AUTO 15.06 K/mm3 (1.96-9.15); NEUTROPHILS PERCENT AUTO 86 % (41-73); NRBC ABSOLUTE 0.17 K/mm3 (0.00-0.02); Platelet Count 212 K/mm3 (150-400); RDW Coefficient Variation 16.6 % (11.7-14.2); RDW Standard Deviation 53.6 fL (35.1-46.3); Red Blood Cell Count 2.41 M/mm3 (4.30-5.90)
[2021-06-29 16:02] LABS: Mean Corpuscular Volume 96 fL (80-100)
[2021-06-29 16:40] LABS: Albumin, Blood 2.6 g/dL (3.4-5.0); Albumin/Globulin Ratio 0.7 (0.8-1.8); Bilirubin, Total 0.5 mg/dL (0.1-1.0); Bun/Creatinine Ratio 17.9 (12.0-20.0); Calcium, Blood 8.7 mg/dL (8.5-10.1); Creatinine, Blood 2.62 mg/dL (0.60-1.20); Globulin, Blood 3.6 g/dL (2.2-4.0); Potassium, Blood 4.6 mmol/L (3.5-5.5); Total Protein, Blood 6.2 g/dL (6.4-8.2)
[2021-06-29 16:40] LABS: Bicarbonate Venous 23.3 mmol/L (24.0-30.0); PO2 Venous 45.7 mmHg (38-42); pH Blood Venous 7.33 (7.34-7.37)
[2021-06-29 17:14] LABS: Troponin I 8.3 ng/mL (0.000-0.040)
[2021-06-29 18:07] LABS: International Normalized Ratio 0.93; Prothrombin Time Results 10.1 Sec (9.7-11.5)
[2021-06-29] MEDS ORDERED: ALLO100 PO (18:28)
[2021-06-29] MEDS ORDERED: ALBU90OI INH (18:28)
[2021-06-29] MEDS ORDERED: AMLO10 PO (18:29)
[2021-06-29] MEDS ORDERED: BUPR100ER PO ×2 (18:30→18:32)
[2021-06-29] MEDS ORDERED: Aspir 8181 MG PO (18:30)
[2021-06-29] MEDS ORDERED: DEXA1 PO (18:32)
[2021-06-29] MEDS ORDERED: EZET10 PO (18:32)
[2021-06-29] MEDS ORDERED: ALLEGRA ALLERGY60 MG PO (18:33)
[2021-06-29] MEDS ORDERED: Flonase 0.05% N16 GM (18:34)
[2021-06-29] MEDS ORDERED: NEURONTIN600 MG PO (18:34)
[2021-06-29] MEDS ORDERED: GABAPENTIN600 MG PO (18:34)
[2021-06-29] MEDS ORDERED: NOVOLOG FL100 UNIT/3 SC (18:35)
[2021-06-29] MEDS ORDERED: LIDO700A20 TOP (18:36)
[2021-06-29] MEDS ORDERED: ISODIN20 PO (18:36)
[2021-06-29] MEDS ORDERED: METO25ER PO (18:37)
[2021-06-29] MEDS ORDERED: OXYM.05NI (18:37)
[2021-06-29] MEDS ORDERED: TAMS.4ER PO (18:38)
[2021-06-29] MEDS ORDERED: SERT100 PO (18:38)
[2021-06-29] MEDS ORDERED: MIRALAX17 GM PO (18:38)
[2021-06-29] MEDS ORDERED: POTA10T PO (18:45)
--- NOTE | 2021-06-30 00:30 | NUR ---
ASSUMED CARE ASSUMED CARE OF PT AT 2030. PT IS A/OX4 BUT [place]. PT IS ON 4L NC, SATURATIONS AT 90-94%. PT LEGS ARE VERY EDEMADOUS, 3+ PITTING EDEMA ON THE R LEG. THERE IS A LARGE HEMATOMA FROM THE PT GROIN TO FOOT. THIS IS MARKED AND PICTURES IN CHART. PT C/O TOLERABLE PAIN FROM LEG. LOVENOX HELD DUE TO HEMATOMA. THIS NURSE TALKED TO HOSPITALIST IN THE HALLWAY WHO SAID THAT LOVENOX IS OK PROPHYLACTICLY, BUT HEPRIN SOUND NOT BE INFUSED, PER ER TILE ROOFER. DR WHYTE OK WITH LOVENOX STARTED TOMORROW 06/30. CALL LIGHT IN REACH, BED IN LOWEST POSTION.
[2021-06-30 02:41] LABS: BASOPHILS ABSOLUTE AUTO 0.02 K/mm3 (0.00-0.23); BASOPHILS PERCENT AUTO 0 % (0-2); EOSINOPHILS PERCENT AUTO 0 % (0-6); Hematocrit 22.3 % (37.0-53.0); Hemoglobin 7.1 g/dL (13.5-17.5); IMMATURE GRAN ABSOLUTE AUTO 0.33 K/mm3 (0.00-0.10); IMMATURE GRAN PERCENT AUTO 2 % (0-1); LYMPHOCYTES ABSOLUTE AUTO 0.23 K/mm3 (0.84-5.20); LYMPHOCYTES PERCENT AUTO 2 % (21-46); MONOCYTES PERCENT AUTO 1 % (4-13); Mean Corpuscular HGB 30.2 pg (26.0-34.0); Mean Corpuscular HGB Conc 31.8 g/dL (31.5-36.5); Mean Corpuscular Volume 95 fL (80-100); Mean Platelet Volume 10.8 fL (9.1-12.4); NEUTROPHILS ABSOLUTE AUTO 13.51 K/mm3 (1.96-9.15); NEUTROPHILS PERCENT AUTO 95 % (41-73); NRBC ABSOLUTE 0.07 K/mm3 (0.00-0.02); NRBC Auto 0.5 /100 WBC (0.0-0.2); Platelet Count 187 K/mm3 (150-400); RDW Standard Deviation 53.1 fL (35.1-46.3); Red Blood Cell Count 2.35 M/mm3 (4.30-5.90); White Blood Cell Count 14.19 K/mm3 (4.00-11.30)
[2021-06-30 02:59] LABS: Calcium, Blood 8.5 mg/dL (8.5-10.1); Creatinine, Blood 2.74 mg/dL (0.60-1.20); Potassium, Blood 4.8 mmol/L (3.5-5.5)
--- NOTE | 2021-06-30 05:24 | NUR ---
SHIFT SUMMARY PT HAD AUDIBLE WHEEZES THIS AM. RT CONSULTED WITH CARE. PT LASIX DRIP BEEN INFUSING T/O THE NIGHT. PT URINE IS CLEAR AND YELLOW. PT IS INDEPENDENT IN THE BED. PT REPORT HIS LEG IS SORE THIS AM. OSTOMY HAS BROWN SOFT STOOL, STOMA LOOKS PINK AND MOIST. CALL LIGHT IN REACH, BED IN LOWEST POSTION.
[2021-06-30 08:22] LABS: Hematocrit 23.4 % (37.0-53.0); Hemoglobin 7.4 g/dL (13.5-17.5)
[2021-06-30 16:27] LABS: Hematocrit 23.9 % (37.0-53.0); Hemoglobin 7.5 g/dL (13.5-17.5)
--- NOTE | 2021-06-30 16:59 | NUR ---
Pt sitting in chair upon arrival. Pt denies pain, dyspnea, and nausea at this time. Pt does report some mild anxiety. He states anxiety has improved since his spouse arrived. Pt's spouse Jalen is at bedside. Engaged in therapeutic discussion regarding advanced care planning. Pt reports living at home with his spouse. At baseline Pt is able to ambulate with a cane but over the last week ambulation has been difficult. Gentle education on disease process including trajectory of disease. Discussed the importance of planning for the future and having routine conversations with PCP as disease takes it's coarse. Engaged in therapeutic discussion regarding code status. Educated on life sustaining treatments including risk factors and implications of CPR. Offered therapeutic listening and answered questions. Pt reports his wishes are to be DNR. Discussed considering completing a POLST. Educated on each section to complete and educated on each choice listed on POLST. Pt reports he will take home and complete with his PCP. Pt requesting to have hydroxazine availble for him. Pt reports taking this medication at home 3 times a day as needed for anxiety and sleep. Pt and spouse report no other concerns at this time and express appreciation of visit. Called and spoke with Dr Lombardo. Relayed Pt's wishes for code status and request for hydroxazine. Placed order for Pt's code status as DNR, and hydroxazine 25mg PO 3 times a day PRN per V/O from Dr Lombardo. Palliative Care will remain available.
--- NOTE | 2021-06-30 19:47 | NUR ---
PT HAD AN UNEVENTFUL DAY, DAUGHTER CAME TO SEE HIM, HE SAT IN A CHAIR FOR ABOUT FOUR HRS, SCUDS PUT ON LEFT LEG PER ORDER, TYLENOL GIVEN FOR PAIN, NO FURTHER CHANGES THIS SHIFT. CALL LIGHT IN REACH.
--- NOTE | 2021-06-30 23:19 | NUR ---
SHIFT SUMMARY ASSUMED CARE OF PT AT 1900. PT IS A/OX4. LUNG SOUNDS HAVE CRACKLES AT THE BASES. PT HAD NO NEW COMPLAINTS. PT WAS TITRATED DOWN TO 2L NC, SATURATIONS ABOVE 95%. LASIX DRIP GOING AND PT VOIDING CLEAR YELLOW URINE. PT STATES THAT HIS LEG FEELS SORE BUT THIS NURSE NOTICED THE BRUSING IS NOT DARK TODAY. CALL LIGHT IN REACH, BED IN LOWEST POSTION.
[2021-07-01 00:25] LABS: Hematocrit 22.4 % (37.0-53.0); Hemoglobin 7.2 g/dL (13.5-17.5)
--- NOTE | 2021-07-01 06:36 | NUR ---
SHIFT SUMMARY NO ACUTE CHANGES DURING THE NIGHT. PT WAS TITRATED DOWN TO RA, SATURATIONS ABOVE 95%. PT WAS INCONTIENT THIS AM. PT COMPLAINED OF HIS LEG BEING SORE WHEN TRANFERING. CALL LIGHT IN REACH, BED IN LOWEST POSTION.
[2021-07-01 08:44] LABS: Hematocrit 24.1 % (37.0-53.0); Hemoglobin 7.8 g/dL (13.5-17.5)
[2021-07-01] MEDS ORDERED: Acetaminophen650 M1 PO (14:55)
[2021-07-01] MEDS ORDERED: FURO40 PO (14:56)
[2021-07-01] MEDS ORDERED: TIOT18 INH (14:57)
--- NOTE | 2021-07-01 15:19 | NUR ---
DISCHARGE PT WAS DISCHARGED TODAY AT APPROXIMATELY 1515. IV AND TELE WAS REMOVED. PT WAS GIVEN INSTRUCTION ON NEW MEDICATIONS AND THEY WERE SENT TO THE [facility] [place] PT REQUEST. PT WAS REFERRED FOR CARDIAC REHAB AND WAS GIVEN INSTRUCTION TO FOLLOW UP WITH CARDIOLOGY WITHIN 1 WEEK. PT AND SPOUSE GAVE VERBAL UNDERSTANDING. PT ON RA UPON DISCHARGE AND WAS ESCORTED OFF THE UNIT BY PARAPROFESSIONAL EDUCATION ASSISTANT VIA WHEELCHAIR.
== END 2021-07-01 15:18 | disposition home or self-care (01) | DRG 280 ==
LOC: ER 15:18 → PCU 18:30
PROVIDERS: Physician Assistant; Student in an Organized Health Care Education/Training Program; ADMIT Internal Medicine
DX: I13.0 Hypertensive heart and chronic kidney disease with heart failure and stage 1 through stage 4 chronic kidney disease, or unspecified chronic kidney disease (principal); I21.4 Non-ST elevation (NSTEMI) myocardial infarction; J96.01 Acute respiratory failure with hypoxia; I50.43 Acute on chronic combined systolic (congestive) and diastolic (congestive) heart failure; J44.9 Chronic obstructive pulmonary disease, unspecified; D63.1 Anemia in chronic kidney disease; N18.9 Chronic kidney disease, unspecified; M35.3 Polymyalgia rheumatica; E11.22 Type 2 diabetes mellitus with diabetic chronic kidney disease; F32.9 Major depressive disorder, single episode, unspecified; F17.210 Nicotine dependence, cigarettes, uncomplicated; N40.0 Benign prostatic hyperplasia without lower urinary tract symptoms; M79.81 Nontraumatic hematoma of soft tissue; I25.2 Old myocardial infarction; Z88.2 Allergy status to sulfonamides; Z88.5 Allergy status to narcotic agent; Z88.6 Allergy status to analgesic agent; Z79.899 Other long term (current) drug therapy
CPT/HCPCS: 36415; 71045; 80048; 80053; 82803; 82947; 83735; 83880; 84484; 85014; 85018; 85025; 85610; 85730; 93005; 93010; 93308; 93321; 93971; 94640; 94644; 94645; 94664; 94760; 96365; 96375; 99285-25; A9270; J1815; J1940; J2930; J3475

== ENCOUNTER → 2021-07-23 | Outpatient (CLI) | payer OTHER ==
[~2021-07-23] MED LIST changes: +ALLEGRA ALLERGY60 MG PO; +Acetaminophen650 M1 PO; +Aspir 8181 MG PO; +DEXA1 PO; +FURO40 PO; +Flonase 0.05% N16 GM; +GABAPENTIN600 MG PO; +ISODIN20 PO; +LIDO700A20 TOP; +METO25ER PO; +MIRALAX17 GM PO; +NOVOLOG FL100 UNIT/3 SC; +OXYM.05NI; +POTA10T PO; +TIOT18 INH
[2021-07-24 13:28] LABS: Protein, Urine Quantitative 153.4 mg/dL (0.0-11.9)
[2021-07-26 17:11] LABS: M-SPIKE, % Not Observed % (Not Observed); PROTEIN,TOTAL,URINE 151.4 mg/dL (Not Estab.)
== END | disposition home or self-care (01) ==
LOC: LAB 08:00 → LAB SHORT 08:00 → LAB FUT 07-20 10:35
PROVIDERS: Internal Medicine Nephrology
DX: N18.4 Chronic kidney disease, stage 4 (severe) (principal); D63.1 Anemia in chronic kidney disease; N25.81 Secondary hyperparathyroidism of renal origin; E55.9 Vitamin D deficiency, unspecified; E29.1 Testicular hypofunction; R76.9 Abnormal immunological finding in serum, unspecified; R94.5 Abnormal results of liver function studies; R94.6 Abnormal results of thyroid function studies
CPT/HCPCS: 81050; 82043; 82570; 84156; 84166; 86335

== ENCOUNTER 2021-08-14 21:05 | Observation (INO) | payer OTHER ==
[~2021-08-14] VITALS: Ht 180.3 cm; Wt 99.8 kg
[2021-08-14] MEDS ORDERED: [UNRECOGNIZED DRUG - CODE] SC (21:25)
[2021-08-14] MEDS ORDERED: GABA300 PO (21:27)
[2021-08-14] MEDS ORDERED: HYDHCL25 PO (21:29)
[2021-08-14] MEDS ORDERED: BASAGLAR K100 UNIT/1 SC (21:30)
[2021-08-14 21:55] LABS: BASOPHILS ABSOLUTE AUTO 0.01 K/mm3 (0.00-0.23); BASOPHILS PERCENT AUTO 0 % (0-2); EOSINOPHILS ABSOLUTE AUTO 0.23 K/mm3 (0.00-0.68); EOSINOPHILS PERCENT AUTO 3 % (0-6); Hematocrit 36.8 % (37.0-53.0); Hemoglobin 11.9 g/dL (13.5-17.5); IMMATURE GRAN ABSOLUTE AUTO 0.03 K/mm3 (0.00-0.10); IMMATURE GRAN PERCENT AUTO 0 % (0-1); LYMPHOCYTES PERCENT AUTO 9 % (21-46); MONOCYTES ABSOLUTE AUTO 0.61 K/mm3 (0.16-1.47); MONOCYTES PERCENT AUTO 8 % (4-13); Mean Corpuscular HGB 29.5 pg (26.0-34.0); Mean Corpuscular HGB Conc 32.3 g/dL (31.5-36.5); Mean Corpuscular Volume 91 fL (80-100); Mean Platelet Volume 12.2 fL (9.1-12.4); NEUTROPHILS ABSOLUTE AUTO 6.19 K/mm3 (1.96-9.15); NEUTROPHILS PERCENT AUTO 80 % (41-73); Platelet Count 108 K/mm3 (150-400); RDW Standard Deviation 54.4 fL (35.1-46.3); Red Blood Cell Count 4.03 M/mm3 (4.30-5.90); White Blood Cell Count 7.77 K/mm3 (4.00-11.30)
[2021-08-14 22:14] LABS: Bun/Creatinine Ratio 12.3 (12.0-20.0); Calcium, Blood 8.3 mg/dL (8.5-10.1); Creatinine, Blood 2.76 mg/dL (0.60-1.20); Magnesium, Blood 2.6 mg/dL (1.6-2.4); Potassium, Blood 3.3 mmol/L (3.5-5.5); Troponin I 0.051 ng/mL (0.000-0.040)
[2021-08-15 05:57] LABS: BASOPHILS ABSOLUTE AUTO 0.04 K/mm3 (0.00-0.23); BASOPHILS PERCENT AUTO 1 % (0-2); EOSINOPHILS ABSOLUTE AUTO 0.28 K/mm3 (0.00-0.68); EOSINOPHILS PERCENT AUTO 4 % (0-6); Hematocrit 39.8 % (37.0-53.0); Hemoglobin 12.6 g/dL (13.5-17.5); IMMATURE GRAN ABSOLUTE AUTO 0.04 K/mm3 (0.00-0.10); IMMATURE GRAN PERCENT AUTO 1 % (0-1); LYMPHOCYTES ABSOLUTE AUTO 0.68 K/mm3 (0.84-5.20); LYMPHOCYTES PERCENT AUTO 10 % (21-46); MONOCYTES ABSOLUTE AUTO 0.56 K/mm3 (0.16-1.47); MONOCYTES PERCENT AUTO 8 % (4-13); Mean Corpuscular HGB 29.2 pg (26.0-34.0); Mean Corpuscular HGB Conc 31.7 g/dL (31.5-36.5); Mean Corpuscular Volume 92 fL (80-100); Mean Platelet Volume 10.7 fL (9.1-12.4); NEUTROPHILS ABSOLUTE AUTO 5.56 K/mm3 (1.96-9.15); NEUTROPHILS PERCENT AUTO 78 % (41-73); Platelet Count 100 K/mm3 (150-400); RDW Standard Deviation 55.2 fL (35.1-46.3); Red Blood Cell Count 4.31 M/mm3 (4.30-5.90); White Blood Cell Count 7.16 K/mm3 (4.00-11.30)
[2021-08-15 06:18] LABS: Calcium, Blood 8.1 mg/dL (8.5-10.1); Creatinine, Blood 2.66 mg/dL (0.60-1.20); Potassium, Blood 3.5 mmol/L (3.5-5.5)
--- NOTE | 2021-08-15 18:04 | NUR ---
SHIFT SUMMARY: PT A/O X 2-3. PT ONE PERSON ASSIST W/GAIT BELT WHEN AMBULATING. PT IMPULSIVE AT TIMES. PT HAD FALL TODAY ACQUIRING SKIN TEAR TO AZUL AND ABRASION TO RFA. WOUND CARE COMPLETED. PT HAS COMPLAINED OF CULLEN THIS EVENING AND MEDICATED WITH TYLENOL. NO OTHER ACUTE CONCERNS.
--- NOTE | 2021-08-16 04:57 | NUR ---
SHIFT SUMMARY AOX3-FORGETFUL OF MONTH & TOWN, OTHERWISE ALERT TO SELF, HOSPITAL, YR & FOLLOWING DIRECTIONS. DENIED PAIN, N/V OR SOB. SPO2 >90% ON RA. LS DIM & COARSE IN BASES. HAS MULTIPLE SKIN TEARS T/O BILAT ARMS, CLEANSED & PLACED NEW BANDAGES. COLOSTOMY DRAINING LIQUID BROWN GREEN STOOL. PT REPORTED FEELING ANXIOUS, GAVE PRN ATARAX & HAS RESTED SOUNDLY T/O NIGHT. CALL LIGHT & BED ALARM IN PLACE.
[2021-08-16 06:05] LABS: Calcium, Blood 8.5 mg/dL (8.5-10.1); Creatinine, Blood 2.63 mg/dL (0.60-1.20); Potassium, Blood 3.1 mmol/L (3.5-5.5)
[2021-08-16] MEDS ORDERED: VISBIOME 112.51 EACH PO (12:42)
[2021-08-16] MEDS ORDERED: DOXY100 PO (12:43)
--- NOTE | 2021-08-16 14:47 | NUR ---
DISCHARGE NOTE: PT REFUSED TO DISCUSS DC PLAN AND SIGN DC PAPERS. DISCUSSED DC PLAN OVER THE PHONE WITH SAGE. SAGE PEÑA. SAGE INFORMED ME SHE HAS ALREADY BEEN IN CONTACT WITH [facility]. PT IV REMOVED FROM [facility]. PT ASSISTED WITH GETTING DRESSED, BELONGINGS PACKED UP AND SENT WITH. PT ESCORTED BY THIS RN AND ENTERTAINER & COMIC TO POV. PT TX WITH ONE PERSON ASSIST AND GAIT BELT TO CAR WITH NO ADVERSE EVENTS.
== END 2021-08-16 13:50 | disposition home health service (06) ==
LOC: ER 21:05 → MEDS 21:06
PROVIDERS: Family Medicine; Internal Medicine; Student in an Organized Health Care Education/Training Program; ADMIT Family Medicine
DX: J18.9 Pneumonia, unspecified organism (principal); R53.1 Weakness; R10.812 Left upper quadrant abdominal tenderness; R77.8 Other specified abnormalities of plasma proteins; I13.0 Hypertensive heart and chronic kidney disease with heart failure and stage 1 through stage 4 chronic kidney disease, or unspecified chronic kidney disease; E11.22 Type 2 diabetes mellitus with diabetic chronic kidney disease; N18.4 Chronic kidney disease, stage 4 (severe); I50.22 Chronic systolic (congestive) heart failure; M06.9 Rheumatoid arthritis, unspecified; I25.10 Atherosclerotic heart disease of native coronary artery without angina pectoris; I25.2 Old myocardial infarction; E11.42 Type 2 diabetes mellitus with diabetic polyneuropathy; E11.51 Type 2 diabetes mellitus with diabetic peripheral angiopathy without gangrene; J42 Unspecified chronic bronchitis; E87.6 Hypokalemia; F17.210 Nicotine dependence, cigarettes, uncomplicated; Z86.73 Personal history of transient ischemic attack (TIA), and cerebral infarction without residual deficits; Z79.82 Long term (current) use of aspirin; Z79.4 Long term (current) use of insulin; Z88.8 Allergy status to other drugs, medicaments and biological substances; Z88.5 Allergy status to narcotic agent; Z88.2 Allergy status to sulfonamides; Z91.81 History of falling
CPT/HCPCS: 36415; 71046; 80048; 82947; 83735; 83880; 84145; 84484; 85025; 92526; 92610; 93005; 93010; 96374; 97110; 97161; 97167; 97530; 97535; 99285-25; A9270; J0295; J0456; J0696; J1815; J1940; J7050

== ENCOUNTER 2021-09-07 09:36 | Emergency (ER) | payer OTHER ==
[~2021-09-07] VITALS: Ht 182.9 cm; Wt 90.7 kg
[~2021-09-07 09:36] MED LIST changes: +BASAGLAR K100 UNIT/1 SC; +DOXY100 PO; +GABA300 PO; +VISBIOME 112.51 EACH PO; +[UNRECOGNIZED DRUG - CODE] SC
[2021-09-07 10:18] LABS: BASOPHILS ABSOLUTE AUTO 0.08 K/mm3 (0.00-0.23); BASOPHILS PERCENT AUTO 1 % (0-2); EOSINOPHILS ABSOLUTE AUTO 0.21 K/mm3 (0.00-0.68); EOSINOPHILS PERCENT AUTO 2 % (0-6); Hematocrit 40.3 % (37.0-53.0); IMMATURE GRAN ABSOLUTE AUTO 0.06 K/mm3 (0.00-0.10); IMMATURE GRAN PERCENT AUTO 1 % (0-1); LYMPHOCYTES ABSOLUTE AUTO 0.84 K/mm3 (0.84-5.20); LYMPHOCYTES PERCENT AUTO 7 % (21-46); MONOCYTES ABSOLUTE AUTO 1.04 K/mm3 (0.16-1.47); MONOCYTES PERCENT AUTO 9 % (4-13); Mean Corpuscular HGB 28.6 pg (26.0-34.0); Mean Corpuscular HGB Conc 32.3 g/dL (31.5-36.5); Mean Corpuscular Volume 89 fL (80-100); Mean Platelet Volume 10.6 fL (9.1-12.4); NEUTROPHILS PERCENT AUTO 82 % (41-73); Platelet Count 263 K/mm3 (150-400); RDW Coefficient Variation 16.5 % (11.7-14.2); RDW Standard Deviation 53.4 fL (35.1-46.3); Red Blood Cell Count 4.55 M/mm3 (4.30-5.90); White Blood Cell Count 12.03 K/mm3 (4.00-11.30)
[2021-09-07 10:48] LABS: Albumin, Blood 2.2 g/dL (3.4-5.0); Albumin/Globulin Ratio 0.5 (0.8-1.8); Bilirubin, Total 0.4 mg/dL (0.1-1.0); Bun/Creatinine Ratio 9.7 (12.0-20.0); Calcium, Blood 9.2 mg/dL (8.5-10.1); Creatinine, Blood 2.59 mg/dL (0.60-1.20); Globulin, Blood 4.2 g/dL (2.2-4.0); Potassium, Blood 3.7 mmol/L (3.5-5.5); Total Protein, Blood 6.4 g/dL (6.4-8.2); Troponin I 0.022 ng/mL (0.000-0.040)
[2021-09-07 11:29] LABS: Source, Urine Catheter
[2021-09-07 11:35] LABS: Adenovirus Not Detected (NOT DETECT); Coronavirus 229E Not Detected (NOT DETECT); Coronavirus HKU1 Not Detected (NOT DETECT); Coronavirus NL63 Not Detected (NOT DETECT); Coronavirus OC43 Not Detected (NOT DETECT); SARS-Cov-2 (COVID-19), BioFire Not Detected (NOT DETECT)
[2021-09-07 11:36] LABS: Bordetella pertussis Not Detected (NOT DETECT); Chlamydophila pneumoniae Not Detected (NOT DETECT); Human Metapneumovirus Not Detected (NOT DETECT); Human Rhinovirus/Enterovirus Not Detected (NOT DETECT); Influenza A/2009-H1 Not Detected (NOT DETECT); Influenza A/H1 Not Detected (NOT DETECT); Influenza A/H3 Not Detected (NOT DETECT); Influenza B Not Detected (NOT DETECT); Mycoplasma pneumoniae Not Detected (NOT DETECT); Parainfluenza Virus 1 Not Detected (NOT DETECT); Parainfluenza Virus 2 Not Detected (NOT DETECT); Parainfluenza Virus 3 Not Detected (NOT DETECT); Parainfluenza Virus 4 Not Detected (NOT DETECT); Respiratory Syncytial Virus Not Detected (NOT DETECT)
[2021-09-07 11:41] LABS: Appearance, Urine Clear (Clear); Bilirubin, Urine Neg (Neg); Blood, Urine 2+ (Neg); Color, Urine Yellow (P-Yellow); Glucose Qualitative, Urine Neg (Neg); Ketones, Urine Neg (Neg); Leukocyte Esterase, Urine Neg (Neg); Nitrite, Urine Neg (Neg); Protein, Urine 4+ (Neg); Urobilinogen, Urine NORM (Normal)
[2021-09-07 12:12] LABS: Bacteria Rare /hpf; Red Blood Cells, Urine 0-2 /hpf (0-2); Squamous Epithelial Cells Rare /hpf (Few); White Blood Cells, Urine 0-2 /hpf (0-5)
[2021-09-07] MEDS ORDERED: CEPH500 PO (13:08)
== END 2021-09-07 14:05 | disposition home or self-care (01) ==
LOC: ER 09:36
PROVIDERS: Emergency Medicine
DX: N39.0 Urinary tract infection, site not specified (principal); R41.0 Disorientation, unspecified; I13.0 Hypertensive heart and chronic kidney disease with heart failure and stage 1 through stage 4 chronic kidney disease, or unspecified chronic kidney disease; E11.22 Type 2 diabetes mellitus with diabetic chronic kidney disease; N18.30 Chronic kidney disease, stage 3 unspecified; I50.9 Heart failure, unspecified; E78.5 Hyperlipidemia, unspecified; I25.10 Atherosclerotic heart disease of native coronary artery without angina pectoris; E11.42 Type 2 diabetes mellitus with diabetic polyneuropathy; E11.51 Type 2 diabetes mellitus with diabetic peripheral angiopathy without gangrene; I73.9 Peripheral vascular disease, unspecified; F17.210 Nicotine dependence, cigarettes, uncomplicated; Z88.2 Allergy status to sulfonamides; Z88.8 Allergy status to other drugs, medicaments and biological substances; Z88.5 Allergy status to narcotic agent; Z79.899 Other long term (current) drug therapy; Z79.82 Long term (current) use of aspirin; Z79.4 Long term (current) use of insulin
CPT/HCPCS: 0202U; 36415; 71045; 80053; 81001; 82140; 83690; 83880; 84484; 85025; 93005; 93010; 96365; 99285-25; J0696

== ENCOUNTER 2021-09-18 13:06 | Emergency (ER) | payer OTHER ==
[~2021-09-18] VITALS: Ht 177.8 cm; Wt 81.7 kg
[2021-09-18 13:58] LABS: BASOPHILS ABSOLUTE AUTO 0.07 K/mm3 (0.00-0.23); BASOPHILS PERCENT AUTO 1 % (0-2); EOSINOPHILS PERCENT AUTO 3 % (0-6); Hematocrit 45.2 % (37.0-53.0); Hemoglobin 14.6 g/dL (13.5-17.5); IMMATURE GRAN ABSOLUTE AUTO 0.09 K/mm3 (0.00-0.10); IMMATURE GRAN PERCENT AUTO 1 % (0-1); LYMPHOCYTES PERCENT AUTO 8 % (21-46); MONOCYTES ABSOLUTE AUTO 0.91 K/mm3 (0.16-1.47); MONOCYTES PERCENT AUTO 7 % (4-13); Mean Corpuscular HGB 27.9 pg (26.0-34.0); Mean Corpuscular HGB Conc 32.3 g/dL (31.5-36.5); Mean Corpuscular Volume 86 fL (80-100); NEUTROPHILS PERCENT AUTO 82 % (41-73); Platelet Count 390 K/mm3 (150-400); RDW Coefficient Variation 16.8 % (11.7-14.2); RDW Standard Deviation 52.6 fL (35.1-46.3); Red Blood Cell Count 5.24 M/mm3 (4.30-5.90); White Blood Cell Count 14.07 K/mm3 (4.00-11.30)
[2021-09-18 14:05] LABS: Source, Urine Catheter
[2021-09-18 14:17] LABS: Alanine Aminotransfer (ALT/SGP 15 U/L (12-78); Albumin, Blood 2.6 g/dL (3.4-5.0); Albumin/Globulin Ratio 0.5 (0.8-1.8); Alk Phos 105 U/L (50-136); Anion Gap 9 mmol/L (6-16); Aspartate Aminotrans (AST/SGOT 20 U/L (12-37); Bilirubin, Total 0.6 mg/dL (0.1-1.0); Blood Urea Nitrogen 28 mg/dL (8-24); Bun/Creatinine Ratio 11.1 (12.0-20.0); CO2, Blood 30 mmol/L (21-32); Calcium, Blood 10.1 mg/dL (8.5-10.1); Chloride, Blood 96 mmol/L (98-108); Creatinine, Blood 2.53 mg/dL (0.60-1.20); Globulin, Blood 5.1 g/dL (2.2-4.0); Glomerular Filtration Rate 25 (60-); Glucose, Blood 143 mg/dL (70-99); Potassium, Blood 3.2 mmol/L (3.5-5.5); Sodium, Blood 135 mmol/L (136-145); Total Protein, Blood 7.7 g/dL (6.4-8.2); Troponin I <0.015 ng/mL (0.000-0.040)
[2021-09-18 14:19] LABS: Appearance, Urine Clear (Clear); Bilirubin, Urine Neg (Neg); Blood, Urine 2+ (Neg); Color, Urine Yellow (P-Yellow); Glucose Qualitative, Urine Neg (Neg); Ketones, Urine Neg (Neg); Leukocyte Esterase, Urine Neg (Neg); Nitrite, Urine Neg (Neg); Protein, Urine 4+ (Neg); Specific Gravity, Urine 1.015 (1.003-1.022); Urobilinogen, Urine NORM (Normal)
[2021-09-18 14:43] LABS: Amorphous Mod (0-Heavy); Bacteria Rare /hpf
[2021-09-18 14:45] LABS: Red Blood Cells, Urine 0-2 /hpf (0-2); Squamous Epithelial Cells Few /hpf (Few)
[2021-09-19] MEDS ORDERED: OXYC5 PO (18:43)
== END 2021-09-18 17:07 | disposition home or self-care (01) ==
LOC: ER 13:06
PROVIDERS: Emergency Medicine
DX: R53.1 Weakness (principal); I13.0 Hypertensive heart and chronic kidney disease with heart failure and stage 1 through stage 4 chronic kidney disease, or unspecified chronic kidney disease; N18.30 Chronic kidney disease, stage 3 unspecified; I50.9 Heart failure, unspecified; N28.9 Disorder of kidney and ureter, unspecified; R41.81 Age-related cognitive decline; I25.10 Atherosclerotic heart disease of native coronary artery without angina pectoris; E11.42 Type 2 diabetes mellitus with diabetic polyneuropathy; E11.51 Type 2 diabetes mellitus with diabetic peripheral angiopathy without gangrene; Z86.73 Personal history of transient ischemic attack (TIA), and cerebral infarction without residual deficits; F17.200 Nicotine dependence, unspecified, uncomplicated; Z88.2 Allergy status to sulfonamides; Z88.5 Allergy status to narcotic agent; Z88.8 Allergy status to other drugs, medicaments and biological substances; Z79.82 Long term (current) use of aspirin; Z79.899 Other long term (current) drug therapy; Z79.4 Long term (current) use of insulin
CPT/HCPCS: 36415; 51701; 70450; 71045; 80053; 81001; 83880; 84484; 85025; 87086; 93005; 93010; 99285-25

== ENCOUNTER 2021-09-19 14:50 | Inpatient (IN) | payer OTHER ==
[~2021-09-19] VITALS: Ht 177.8 cm; Wt 87.1 kg
[2021-09-19 15:47] LABS: BASOPHILS ABSOLUTE AUTO 0.08 K/mm3 (0.00-0.23); BASOPHILS PERCENT AUTO 1 % (0-2); EOSINOPHILS ABSOLUTE AUTO 0.19 K/mm3 (0.00-0.68); EOSINOPHILS PERCENT AUTO 1 % (0-6); Hematocrit 42.4 % (37.0-53.0); Hemoglobin 13.8 g/dL (13.5-17.5); IMMATURE GRAN ABSOLUTE AUTO 0.09 K/mm3 (0.00-0.10); IMMATURE GRAN PERCENT AUTO 1 % (0-1); LYMPHOCYTES ABSOLUTE AUTO 0.93 K/mm3 (0.84-5.20); LYMPHOCYTES PERCENT AUTO 6 % (21-46); MONOCYTES ABSOLUTE AUTO 0.87 K/mm3 (0.16-1.47); MONOCYTES PERCENT AUTO 6 % (4-13); Mean Corpuscular HGB 28.2 pg (26.0-34.0); Mean Corpuscular HGB Conc 32.5 g/dL (31.5-36.5); Mean Corpuscular Volume 87 fL (80-100); Mean Platelet Volume 10.4 fL (9.1-12.4); NEUTROPHILS ABSOLUTE AUTO 12.98 K/mm3 (1.96-9.15); NEUTROPHILS PERCENT AUTO 86 % (41-73); Platelet Count 386 K/mm3 (150-400); RDW Coefficient Variation 16.9 % (11.7-14.2); RDW Standard Deviation 53.9 fL (35.1-46.3); White Blood Cell Count 15.14 K/mm3 (4.00-11.30)
[2021-09-19 15:58] LABS: Magnesium, Blood 2.5 mg/dL (1.6-2.4); Troponin I 0.029 ng/mL (0.000-0.040)
[2021-09-19 15:59] LABS: Albumin, Blood 2.4 g/dL (3.4-5.0); Albumin/Globulin Ratio 0.5 (0.8-1.8); Bilirubin, Total 0.6 mg/dL (0.1-1.0); Bun/Creatinine Ratio 11.6 (12.0-20.0); Calcium, Blood 9.8 mg/dL (8.5-10.1); Creatinine, Blood 2.68 mg/dL (0.60-1.20); Potassium, Blood 3.4 mmol/L (3.5-5.5); Total Protein, Blood 7.4 g/dL (6.4-8.2)
[2021-09-19 16:09] LABS: Base Excess Venous 9.4 mmol/L; Bicarbonate Venous 32.2 mmol/L (24.0-30.0); PCO2 Venous 42.9 mmHg (38-42); pH Blood Venous 7.49 (7.34-7.37)
[2021-09-19 16:33] LABS: International Normalized Ratio 1.12; Prothrombin Time Results 11.7 Sec (9.7-11.5)
--- NOTE | 2021-09-19 17:03 | NUR ---
Met with patient and his Jalen. Jalen reports she brought pt in yesterday via ED, but he was sent home with diagnosis of weakness. He was then seen by HH PT, who recommended she bring him back in, as he "didn't seem like himself". Pt has an extensive history this year of illnesses, including acute kidney failure and 2 CA's. His remains at the bedside during our visit and she is an excellent historian. Pt is lying on the ED gurney, appears frail. He's currently running a low grade fever. Has hx of both bladder tumor and prostate Ca, but neither are life threatening at this moment, as one is in remission and one is extremely slow growing at this time. is open to looking into hospice, possibly after this hospitalization, as she would like pt treated to improve quality of life before going on hospice. Relayed info to Dr. Lange, and will follow up with pt and his tomorrow morning.
[2021-09-19 17:55] LABS: Source, Urine Catheter
[2021-09-19 18:00] LABS: Appearance, Urine Clear (Clear); Bilirubin, Urine Neg (Neg); Blood, Urine 2+ (Neg); Color, Urine Yellow (P-Yellow); Glucose Qualitative, Urine Neg (Neg); Ketones, Urine Neg (Neg); Leukocyte Esterase, Urine Neg (Neg); Nitrite, Urine Neg (Neg); Protein, Urine 4+ (Neg); Urobilinogen, Urine NORM (Normal)
[2021-09-19 18:24] LABS: Bacteria Few /hpf; Red Blood Cells, Urine 0-2 /hpf (0-2); Squamous Epithelial Cells Few /hpf (Few)
[2021-09-19] MEDS ORDERED: OXYC5 PO (18:43)
[2021-09-19 19:02] LABS: SARS-Cov-2 (COVID-19) PCR, MMC NEGATIVE (NEGATIVE)
--- NOTE | 2021-09-19 22:02 | NUR ---
transfer report from [place] FLOORING SALESPERSON on 76 year old MAle with Sepsis chest pain pneumonia, multiple medical problems & falls being admitted to medical floor. Covid neg reported, on oxygen per report. Await admission with tele monitoring.
[2021-09-20 05:49] LABS: BASOPHILS ABSOLUTE AUTO 0.07 K/mm3 (0.00-0.23); BASOPHILS PERCENT AUTO 1 % (0-2); EOSINOPHILS ABSOLUTE AUTO 0.17 K/mm3 (0.00-0.68); EOSINOPHILS PERCENT AUTO 1 % (0-6); Hemoglobin 12.6 g/dL (13.5-17.5); IMMATURE GRAN ABSOLUTE AUTO 0.07 K/mm3 (0.00-0.10); IMMATURE GRAN PERCENT AUTO 1 % (0-1); LYMPHOCYTES ABSOLUTE AUTO 0.84 K/mm3 (0.84-5.20); LYMPHOCYTES PERCENT AUTO 6 % (21-46); MONOCYTES ABSOLUTE AUTO 0.97 K/mm3 (0.16-1.47); MONOCYTES PERCENT AUTO 6 % (4-13); Mean Corpuscular HGB 27.9 pg (26.0-34.0); Mean Corpuscular HGB Conc 32.3 g/dL (31.5-36.5); Mean Corpuscular Volume 87 fL (80-100); Mean Platelet Volume 10.1 fL (9.1-12.4); NEUTROPHILS ABSOLUTE AUTO 12.98 K/mm3 (1.96-9.15); NEUTROPHILS PERCENT AUTO 86 % (41-73); Platelet Count 341 K/mm3 (150-400); RDW Coefficient Variation 16.9 % (11.7-14.2); RDW Standard Deviation 54.5 fL (35.1-46.3); Red Blood Cell Count 4.51 M/mm3 (4.30-5.90)
[2021-09-20 06:14] LABS: Alanine Aminotransfer (ALT/SGP 11 U/L (12-78); Albumin/Globulin Ratio 0.4 (0.8-1.8); Alk Phos 88 U/L (50-136); Anion Gap 6 mmol/L (6-16); Aspartate Aminotrans (AST/SGOT 14 U/L (12-37); Bilirubin, Total 0.6 mg/dL (0.1-1.0); Blood Urea Nitrogen 29 mg/dL (8-24); Bun/Creatinine Ratio 11.7 (12.0-20.0); CO2, Blood 30 mmol/L (21-32); Calcium, Blood 9.3 mg/dL (8.5-10.1); Chloride, Blood 102 mmol/L (98-108); Creatinine, Blood 2.47 mg/dL (0.60-1.20); Globulin, Blood 4.8 g/dL (2.2-4.0); Glomerular Filtration Rate 26 (60-); Glucose, Blood 132 mg/dL (70-99); Potassium, Blood 3.2 mmol/L (3.5-5.5); Sodium, Blood 138 mmol/L (136-145); Total Protein, Blood 6.8 g/dL (6.4-8.2); Vancomycin, Random 20.7 ug/mL
--- NOTE | 2021-09-20 06:49 | NUR ---
PT admitted with sepsis rt sided pneumonia. PT on room air NPO for possible aspiration. Does have loose nonprod cough. PT has confusion alert to self. Jalen was in hallway during admission butleft before I could get history. PT has ostomy patent sm amt pasty & flatus. Lardge amt of abd scarring & lt sided buldge large present. Barrel chestPT was 40 plus year smoker. Multiple medical problems, multiple skin issues, see photos of some PT says he was bitten by Son's Pit bull a month ago. Covered area with dry protective dressing. Continue to assess & involve inplan of care.
[2021-09-20] MEDS ORDERED: PROCRIT40000 UNIT SC (12:36)
[2021-09-20] MEDS ORDERED: OXYM.05NI (12:41)
--- NOTE | 2021-09-20 16:58 | NUR ---
END OF SHIFT SUMMARY: PATIENT DENIED PAIN BUT REPORTED THAT HE WASN'T FEELING WELL DURING THE SHIFT. MEDICATED THIS MORNING FOR ELEVATED BP AND TEMPERATURE. DR. APARICIOS AWARE. BOTH RESOLVED WITH PRNS AND SCHEDULED MEDICATIONS. PATIENT WORKED WITH THERAPY, BUT REPORTED DIZZINESS AND LIGHTHEADEDNESS WHEN ATTEMPTING TO STAND. PATIENT HAS PERIODS OF CONFUSION AND PERIODS OF BEING ABLE TO FOLLOW COMMANDS AND ANSWER QUESTIONS APPROPRIATELY. PATIENT'S REPORTS THAT THIS IS BASELINE FOR THE PATIENT. PATIENT SLEPT MUCH OF THE DAY. PATIENT'S CAME TO VISIT THE PATIENT. SHE WAS ABLE TO DISCUSS PLAN OF CARE WITH PALLIATIVE CARE, RERE NINO.
[2021-09-21 06:10] LABS: BASOPHILS ABSOLUTE AUTO 0.08 K/mm3 (0.00-0.23); BASOPHILS PERCENT AUTO 1 % (0-2); EOSINOPHILS ABSOLUTE AUTO 0.48 K/mm3 (0.00-0.68); EOSINOPHILS PERCENT AUTO 4 % (0-6); Hematocrit 40.1 % (37.0-53.0); Hemoglobin 12.6 g/dL (13.5-17.5); IMMATURE GRAN ABSOLUTE AUTO 0.06 K/mm3 (0.00-0.10); IMMATURE GRAN PERCENT AUTO 1 % (0-1); LYMPHOCYTES ABSOLUTE AUTO 0.82 K/mm3 (0.84-5.20); LYMPHOCYTES PERCENT AUTO 6 % (21-46); MONOCYTES ABSOLUTE AUTO 0.67 K/mm3 (0.16-1.47); MONOCYTES PERCENT AUTO 5 % (4-13); Mean Corpuscular HGB 27.6 pg (26.0-34.0); Mean Corpuscular HGB Conc 31.4 g/dL (31.5-36.5); Mean Corpuscular Volume 88 fL (80-100); Mean Platelet Volume 10.7 fL (9.1-12.4); NEUTROPHILS ABSOLUTE AUTO 10.69 K/mm3 (1.96-9.15); NEUTROPHILS PERCENT AUTO 84 % (41-73); Platelet Count 341 K/mm3 (150-400); RDW Coefficient Variation 16.9 % (11.7-14.2); RDW Standard Deviation 54.7 fL (35.1-46.3); Red Blood Cell Count 4.57 M/mm3 (4.30-5.90)
[2021-09-21 06:32] LABS: Anion Gap 6 mmol/L (6-16); Blood Urea Nitrogen 29 mg/dL (8-24); Bun/Creatinine Ratio 12.5 (12.0-20.0); CO2, Blood 30 mmol/L (21-32); Calcium, Blood 9.5 mg/dL (8.5-10.1); Chloride, Blood 104 mmol/L (98-108); Creatinine, Blood 2.32 mg/dL (0.60-1.20); Glomerular Filtration Rate 28 (60-); Glucose, Blood 136 mg/dL (70-99); Potassium, Blood 2.9 mmol/L (3.5-5.5); Sodium, Blood 140 mmol/L (136-145); Vancomycin, Random 22.3 ug/mL
--- NOTE | 2021-09-21 14:25 | NUR ---
Met with Abhijit this afternoon. He is awake, watching TV. He states "I've got to get out of here before I end up in the hospital!" Reoriented to place and situation. Pt denies having any concerns at this time. Spoke with Bailey Irwin CM RN, who plans to follow up with Jalen boswell: planning for discharge. PC to continue to follow.
--- NOTE | 2021-09-21 15:31 | NUR ---
Spiritual care visit conducted. Patient is lying in bed and alert. Patient's spouse, Jalen is bedside. Jalen explains about the many medical issues the pt has had and currently is dealing with. 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 Jalen talks about the emotional/spiritual exhaustion and their Mormaon elisa. I provide therapeutic listening, companionship and prayer. Patient and Jalen respond well and show signs of being uplifted and having increased peace. I will continue to remain available to patient and family.
--- NOTE | 2021-09-21 18:27 | NUR ---
SUMMARY PT RESTING QUIETLY IN BED, WAKES EASILY, NEEDS ASSIST WITH MEALS, IS A 2P ASSIST, WORKED WITH PT/OT TODAY, WAS DIZZY WITH THERAPY IN THE AM, DID BETTER IN THE AFTERNOON, CAME IN TO VISIT, MANAGED THE OSTOMY, HOPEFUL PT WILL GO HOME SOON, VSS, WILL CONT TO MONITOR
[2021-09-22 06:00] LABS: BASOPHILS ABSOLUTE AUTO 0.06 K/mm3 (0.00-0.23); BASOPHILS PERCENT AUTO 1 % (0-2); EOSINOPHILS ABSOLUTE AUTO 0.35 K/mm3 (0.00-0.68); EOSINOPHILS PERCENT AUTO 3 % (0-6); Hematocrit 41.2 % (37.0-53.0); Hemoglobin 12.9 g/dL (13.5-17.5); IMMATURE GRAN ABSOLUTE AUTO 0.04 K/mm3 (0.00-0.10); IMMATURE GRAN PERCENT AUTO 0 % (0-1); LYMPHOCYTES ABSOLUTE AUTO 0.82 K/mm3 (0.84-5.20); LYMPHOCYTES PERCENT AUTO 8 % (21-46); MONOCYTES ABSOLUTE AUTO 0.56 K/mm3 (0.16-1.47); MONOCYTES PERCENT AUTO 6 % (4-13); Mean Corpuscular HGB 27.7 pg (26.0-34.0); Mean Corpuscular HGB Conc 31.3 g/dL (31.5-36.5); Mean Corpuscular Volume 89 fL (80-100); Mean Platelet Volume 10.8 fL (9.1-12.4); NEUTROPHILS ABSOLUTE AUTO 8.36 K/mm3 (1.96-9.15); NEUTROPHILS PERCENT AUTO 82 % (41-73); Platelet Count 372 K/mm3 (150-400); RDW Coefficient Variation 17.2 % (11.7-14.2); RDW Standard Deviation 55.5 fL (35.1-46.3); Red Blood Cell Count 4.65 M/mm3 (4.30-5.90); White Blood Cell Count 10.19 K/mm3 (4.00-11.30)
--- NOTE | 2021-09-22 06:09 | NUR ---
NO CHANGES OVERNIGHT. ALERT TO SELF. NO COMPLAINTS OR SIGNS OF PAIN/DISCOMFORT. TELE SR 80'S-90'S. INCONT OF URINE X3 OVERNIGHT. ATTEMPTED URINAL TWICE WITHOUT RESULT. PLEASANT, QUIET AND COOPERATIVE WITH CARE
[2021-09-22 06:25] LABS: Anion Gap 6 mmol/L (6-16); Blood Urea Nitrogen 31 mg/dL (8-24); Bun/Creatinine Ratio 12.5 (12.0-20.0); CO2, Blood 29 mmol/L (21-32); Calcium, Blood 10.2 mg/dL (8.5-10.1); Chloride, Blood 108 mmol/L (98-108); Creatinine, Blood 2.48 mg/dL (0.60-1.20); Glomerular Filtration Rate 26 (60-); Glucose, Blood 139 mg/dL (70-99); Magnesium, Blood 2.5 mg/dL (1.6-2.4); Potassium, Blood 3.1 mmol/L (3.5-5.5); Sodium, Blood 143 mmol/L (136-145); Vancomycin, Random 17.4 ug/mL
--- NOTE | 2021-09-22 17:40 | NUR ---
SHIFT SUMMARY PATIENT RESTING QUIETLY WITH AT BEDSIDE. PATIENT IS EASILY WOKEN. A&O TO SELF. ABLE TO FOLLOW SOME COMMANDS BUT UNABLE TO ANSWER QUESTIONS. COMPLAINED OF HEADACHE EARLIER IN THE DAY WHILE WORKING WITH PT. RESOLVED AFTER GIVEN TYLENOL. PATIENT IS ON TELEMETRY. VS STABLE. WILL CONTINUE TO MONITOR
--- NOTE | 2021-09-23 00:12 | NUR ---
BP 189/117 AND IV APRESOLINE 15 MG GIVEN PER EMAR FOR SBP>180 BP 168/96 ON RECHECK.
--- NOTE | 2021-09-23 03:52 | NUR ---
SHIFT SUMMARY PATIENT HYPERTENSIVE THIS SHIFT 189/117 AND IV APRESOLINE 15MG GIVEN PER EMAR FOR SBP>180. RECHECKED AT 168/96. ALERT TO SELF. TAKES MEDICATION CRUSHED IN PUDDING. USES URINAL. CBG 143. PIV REMAINS INTACT. IV ABX INFUSED. MANAGER CHINESE REPORTS NSR 97. LS COLOSTOMY INTACT AND ASSISTED CARE BY SPOUSE. DENIES PAIN, SOB, AND N/V. CALL LIGHT IN REACH. BED IN LOWEST POSITION AND ALARM ACTIVATED. WILL CONTINUE TO MONITOR UNTIL DAY SHIFT NURSE ASSUMES CARE.
[2021-09-23 05:26] LABS: Vancomycin, Random 24.8 ug/mL
[2021-09-23 06:22] LABS: BASOPHILS ABSOLUTE AUTO 0.07 K/mm3 (0.00-0.23); BASOPHILS PERCENT AUTO 1 % (0-2); EOSINOPHILS ABSOLUTE AUTO 0.43 K/mm3 (0.00-0.68); EOSINOPHILS PERCENT AUTO 5 % (0-6); Hematocrit 43.7 % (37.0-53.0); Hemoglobin 13.6 g/dL (13.5-17.5); IMMATURE GRAN ABSOLUTE AUTO 0.05 K/mm3 (0.00-0.10); IMMATURE GRAN PERCENT AUTO 1 % (0-1); LYMPHOCYTES ABSOLUTE AUTO 0.75 K/mm3 (0.84-5.20); LYMPHOCYTES PERCENT AUTO 8 % (21-46); MONOCYTES ABSOLUTE AUTO 0.52 K/mm3 (0.16-1.47); MONOCYTES PERCENT AUTO 6 % (4-13); Mean Corpuscular HGB 27.9 pg (26.0-34.0); Mean Corpuscular HGB Conc 31.1 g/dL (31.5-36.5); Mean Corpuscular Volume 90 fL (80-100); Mean Platelet Volume 10.9 fL (9.1-12.4); NEUTROPHILS ABSOLUTE AUTO 7.48 K/mm3 (1.96-9.15); NEUTROPHILS PERCENT AUTO 80 % (41-73); Platelet Count 366 K/mm3 (150-400); RDW Coefficient Variation 17.1 % (11.7-14.2); Red Blood Cell Count 4.88 M/mm3 (4.30-5.90)
--- NOTE | 2021-09-23 06:42 | NUR ---
BP 172/104 AND IV APRESOLINE 10 MG GIVEN PER EMAR BP 139/88 ON RECHECK
[2021-09-23 06:44] LABS: Bun/Creatinine Ratio 13.4 (12.0-20.0); Calcium, Blood 10.1 mg/dL (8.5-10.1); Creatinine, Blood 2.38 mg/dL (0.60-1.20)
--- NOTE | 2021-09-23 18:38 | NUR ---
SHIFT SUMMARY: PT A/O X2, ON BEDREST AT THIS TIME. PLEASANT AND COOPERATIVE WITH CARE. HE WAS NOT IMPULSIVE ATTEMPTING TO GET OOB TODAY. PT HAS HAD ELEVATED BP T/OUT DAY. PRN IV HYDRALAZINE GIVEN THIS AM WAS EFFECTIVE BUT NOT FOR A LONG PERIOD OF TIME. PRN IV METOPROLOL GIVEN THIS EVENING FOR SBP 189 AND BP DROPPED TO 112/89. PT TOLERATED WELL AND DID NOT REPORT DIZZINESS OR OTHER ADVERSE REACTION AFTER GIVING. DRESSING CHANGE AND WOUND CARE COMPLETED TO SKIN TEAR ON LFA. NO S/S OF INFECTION AT SITE AND GRANULATION TISSUE NOTED OVER 50% OF WOUND BED. PT IV CHANGED TO POWER GLIDE HIS IV SITE ON L WRIST WAS LEAKING AND REDNESS NOTED AT SITE. EKG COMPLETED TODAY AND TROPONINS SLIGHTLY ELEVATED. PT WAS ASYMPTOMATIC DENYING CP.
--- NOTE | 2021-09-23 23:18 | NUR ---
BP 181/104 AND IV APRESOLINE 10 MG GIVEN PER EMAR FOR SBP>180 BP 169/96 ON RECHECK
--- NOTE | 2021-09-24 04:25 | NUR ---
SHIFT SUMMARY PATIENT HYPERTENSIVE THIS SHIFT. IV APRESOLINE GIVEN PER EMAR FOR SBP>180. ALERT TO SELF WITH NONSENSICAL SPEECH. TAKES MEDS CRUSHED IN PUDDING. ASPIRATION PRECAUTIONS. POWERGLIDE LUCIANO INTACT. LS COLOSTOMY INTACT. GIS ADMINISTRATOR REPORTS NSR 85. IV ABX INFUSED. DENIES PAIN, SOB, AND N/V. CALL LIGHT IN REACH. BED IN LOWEST POSITION. WILL CONTINUE TO MONITOR UNTIL DAY SHIFT NURSE ASSUMES CARE.
[2021-09-24 06:16] LABS: Bun/Creatinine Ratio 12.6 (12.0-20.0); Calcium, Blood 10.1 mg/dL (8.5-10.1); Creatinine, Blood 2.54 mg/dL (0.60-1.20); Potassium, Blood 3.5 mmol/L (3.5-5.5)
--- NOTE | 2021-09-24 17:35 | NUR ---
SHIFT SUMMARY PT HAD ELEVATED BP THIS AM. MEDS ADJUSTED BY MD AND BP IS IMPORVED WITH SBP IN THE 130S. PT VERY FORGETFUL. IN TO VISIT PT THIS AFTERNOON. PT GIVEN BED BATH TODAY, SACRAL MEPILEX REPLACED. NO OTHER ACUTE CHANGE IN ASSESSMENT AT THIS TIME. CALL LIGHT IN REACH. CURRENTLY SLEEPING IN BED WITH BED ALARM IN PLACE.
--- NOTE | 2021-09-25 04:13 | NUR ---
SHIFT SUMMARY PATIENT MORE RESTLESS WITH MULTIPLE OOB ATTEMPTS. REDIRECTED BACK INTO BED. MOVING RIGHT ARM AND NO TWITCHING NOTED. ALERT TO SELF AND TAKES MEDICATIOON CRUSHED IN PUDDING. VSS/AFEBRILE. DENIES PAIN, SOB, AND N/V. POWERGLIDE LUCIANO INTACT. IV ABX INFUSED. COLOSTOMY LS INTACT. CBG 106. CALL LIGHT IN REACH. BED IN LOWEST POSITION AND ALARM ACTIVATED. WILL CONTINUE TO MONITOR UNTIL DAY SHIFT NURSE ASSUMES CARE.
[2021-09-25 05:37] LABS: Bun/Creatinine Ratio 13.6 (12.0-20.0); Calcium, Blood 10.4 mg/dL (8.5-10.1); Creatinine, Blood 2.8 mg/dL (0.60-1.20); Potassium, Blood 3.6 mmol/L (3.5-5.5)
--- NOTE | 2021-09-25 18:18 | NUR ---
SHIFT SUMMARY A/O TO SELF ONLY, PLEASANT AND COOPERATIVE WITH CARE. DENIES PAIN. COLOSTOMY TO LLQ WITH SOFT BROWN OUTPUT. INCONT, ATTENDS IN PLACE. VSS, NO ACUTE CHANGES AT THIS TIME. , SAGE, AT BEDSIDE. BED IN LOWEST POSITION WITH CALL LIGHT IN REACH. WILL CONTINUE TO MONITOR AND REPORT TO ONCOMING RN.
--- NOTE | 2021-09-26 06:20 | NUR ---
SHIFT SUMMARY AOX-SELF. DOESNT RESPOND MUCH TO QUESTIONS. VERY TIRED, FATIGUED. WHISPERS c SPEECH. OCCASIONALL TREMORS/SHAKINESS TO R ARM NOTICED BY THIS NURSE. PT HAS DIFFICULTY HOLDING CUP. BP ELEVATED THIS AM @202/111, RECHECKED BP @185/99. GAVE 20MG IV HYDRALAZINE & BP DECREASED TO 150/87. REST OF VITALS STABLE. DENIES PAIN, N/V OR SOB. CHANGE LUQ COLOSTOMY APPLIANCE 09/25/21 EVENING. INCONT OF URINE & CHANGED PRN. HAS BEEN @BEDSIDE T/O NIGHT. CALL LIGHT &BED ALARM IN PLACE. WCTM.
[2021-09-26 06:43] LABS: Bun/Creatinine Ratio 13.3 (12.0-20.0); Creatinine, Blood 3.08 mg/dL (0.60-1.20); Potassium, Blood 3.9 mmol/L (3.5-5.5)
--- NOTE | 2021-09-26 17:58 | NUR ---
Shift Summary AO to self. was gone most of the day, patient did well. Tolerated PO intake and meal assist by staff. returned and reported hospital bed was delivered to home today, bed rails will be delivered tomorrow. Continues to have tremors/shakes to BUE, R>L. Colostomy intact and draining well. Denies pain. No acute changes, WCTM.
--- NOTE | 2021-09-27 06:06 | NUR ---
SHIFT SUMMARY PT PLEASANTLY CONFUSED. SLEPT MOST OF THE EVENING. TREMORS NOTED TO BUE'S. ALSO NOTED THAT PT IS HAVING DIFFICULTY HOLDING ON TO THINGS, DROPS THEM ALMOST IMMEDIATELY AFTER GRABBING ONTO THEM. PT DENIES ANY PAIN OR SOB. RESPIRATIONS ARE EVEN AND UNLABORED. PT DID WAKE THIS AM CONFUSED AND PULLED HIS OSTOMY OFF AND SPREAD STOOL ALL OVER HIMSELF AND THE BED. PT CLEANED UP, AND BEDDING AND OSTOMY APPLIANCE CHANGED. OTHERWISE PT HAD AN UNEVENTFUL NIGHT. VITAL SIGNS STABLE.
--- NOTE | 2021-09-27 10:03 | NUR ---
IS READY TO DC THIS PATIENT TO HOME. HOSPITAL BED HAS BEEN DELIVERD FOR HIM TO HIS HOME AND SHE WILL BUY ADULT DEPENDS AND PADS FOR BED TODAY. [facility] WILL ARRANGE FOR TRANSPORT HOME. PRIETO PEREZ RN
[2021-09-27] MEDS ORDERED: AMLO5 PO (11:45)
[2021-09-27] MEDS ORDERED: METO25 PO (11:46)
[2021-09-27] MEDS ORDERED: POTA20LUD PO (11:46)
[2021-09-27] MEDS ORDERED: CRANBERRY500 M1 PO (11:47)
--- NOTE | 2021-09-27 17:10 | NUR ---
PATIENT IS DISCHARED TO HOME. SAGE THE SPOUSE WAS NOTIFIED VIA TELEPHONE OF PAITENT DEPARTURE. HOUSEKEEPING FOUND HEARING AIDS IN ROOM. SPOUSE IS CALLED AND CAN COME RETRIEVE HEARING AIDS AT HER CONVENIENCE. POWER GLIDE REMOVED PRIOR TO DISCHARGE, PATIENT TOLERATED WELL. [facility] NOTIFIED OF PATIENT DEPARTURE AND WILL COME SEE HIM TOMORRRO AND RESUME CARE. PRIETO PEREZ RN
== END 2021-09-27 17:01 | disposition home health service (06) | DRG 871 ==
LOC: ER 14:50 → MEDS 19:24
PROVIDERS: Family Medicine; Pharmacist; Student in an Organized Health Care Education/Training Program; ADMIT Internal Medicine
DX: A41.9 Sepsis, unspecified organism (principal); J18.9 Pneumonia, unspecified organism; G92.8 Other toxic encephalopathy; I63.9 Cerebral infarction, unspecified; I13.0 Hypertensive heart and chronic kidney disease with heart failure and stage 1 through stage 4 chronic kidney disease, or unspecified chronic kidney disease; Z20.822 Contact with and (suspected) exposure to COVID-19; M06.9 Rheumatoid arthritis, unspecified; Z51.5 Encounter for palliative care; E78.5 Hyperlipidemia, unspecified; E11.40 Type 2 diabetes mellitus with diabetic neuropathy, unspecified; E11.51 Type 2 diabetes mellitus with diabetic peripheral angiopathy without gangrene; M54.50 Low back pain, unspecified; E11.22 Type 2 diabetes mellitus with diabetic chronic kidney disease; I50.9 Heart failure, unspecified; I25.10 Atherosclerotic heart disease of native coronary artery without angina pectoris; F17.210 Nicotine dependence, cigarettes, uncomplicated; J44.9 Chronic obstructive pulmonary disease, unspecified; R53.1 Weakness; N18.30 Chronic kidney disease, stage 3 unspecified; G89.29 Other chronic pain; F03.90 Unspecified dementia, unspecified severity, without behavioral disturbance, psychotic disturbance, mood disturbance, and anxiety; E87.6 Hypokalemia; Z86.73 Personal history of transient ischemic attack (TIA), and cerebral infarction without residual deficits; Z85.46 Personal history of malignant neoplasm of prostate; Z85.3 Personal history of malignant neoplasm of breast; Z93.3 Colostomy status; Z88.2 Allergy status to sulfonamides; Z88.6 Allergy status to analgesic agent; Z88.8 Allergy status to other drugs, medicaments and biological substances; Z79.4 Long term (current) use of insulin; Z79.82 Long term (current) use of aspirin; Z79.899 Other long term (current) drug therapy
CPT/HCPCS: 36415; 51701; 70450; 71045; 80048; 80053; 80202; 81001; 82803; 82947; 83605; 83735; 83880; 84145; 84484; 85025; 85610; 85730; 87040; 92526; 92610; 93005; 93010; 94760; 94762; 96365; 96366; 96367; 96368; 97110; 97110-CQ; 97162; 97166; 97530; 97530-CQ; 97535; 99285-25; A9270; J0360; J1644; J1815; J2543; J3370; J3480; J7030; J7050; J7120; U0004